=== PATIENT | male | born 1940 | race Caucasian/White ===

== ENCOUNTER 2017-06-30 11:24 | Observation (INO) | payer OTHER ==
[~2017-06-30] VITALS: Ht 170.2 cm; Wt 87.1 kg
[~2017-06-30 11:24] MED LIST: ASPEC81 PO; EYE GTTS OPB; MULT-506 PO; SIMV40TA2 PO
[2017-06-30] MEDS ORDERED: VNTHFA/IN INH (12:17)
[2017-06-30] MEDS ORDERED: CLOP1TAB15 PO (12:17)
[2017-06-30 12:29] LABS: HEMATOCRIT 44.1 % (42-52); MEAN CELL VOLUME 92.6 fL (80-100); MEAN CORPUSCULAR HEMOGLOBIN 32.8 pg (25-34); MEAN CORPUSCULAR HGB CONC 35.4 g/dl (32-36); PLATELET COUNT 284 K/uL (130-400); RED BLOOD COUNT 4.76 M/uL (4.7-6.1); WHITE BLOOD COUNT 6.67 K/uL (4.8-10.8)
[2017-06-30 12:30] LABS: BUN/CREATININE RATIO 12.7 (10-20); CALCIUM 8.9 mg/dl (8.5-10.1); CREATININE 0.79 mg/dl (0.60-1.40); PARTIAL THROMBOPLASTIN RATIO 1.1; POTASSIUM 4.4 mmol/L (3.5-5.1); PROTHROMBIN TIME (PATIENT) 10.7 SECONDS (9.0-12.0)
[2017-06-30 12:35] LABS: ALB/GLOB RATIO 1.2 (0.9-2); CKMB/CK RATIO 1.4 (0-3.0)
--- NOTE | 2017-06-30 12:44 | DIAGNOSTIC IMAGING REPORT ---
CHEST ONE VIEW PORTABLE CLINICAL HISTORY: 77 years-old Male presenting with chest pain sob. TECHNIQUE: Portable upright AP view of the chest was obtained. COMPARISON: 04/27/2009. FINDINGS: Persistent prominence and tortuosity of the aorta, which demonstrates atherosclerosis of the aortic arch. Cardiac silhouette not enlarged. Minimal linear basilar opacities. No other focal infiltrate. No pleural effusion or pneumothorax. Osseous structures normal. Upper abdomen normal. IMPRESSION: 1. Persistent prominence and tortuosity of aorta, unchanged. 2. Possible minimal basilar scarring or atelectasis, unchanged. No other evidence of acute cardiopulmonary disease. Electronically signed by: Florentin Stallworth M.D. 06/30/2017 12:43 PM Dictated Date/Time: 06/30/2017 12:41 PM
[2017-06-30] MEDS ORDERED: ASPIRIN 81 MG CHEW PO STA (13:06)
[2017-06-30] MEDS ORDERED: ACETAMINOPHEN 325 MG TAB PO PRN (13:45)
[2017-06-30] MEDS ORDERED: ONDANSETRON INJ 2 MG/ML 2 ML VIAL IV PRN (13:45)
[2017-06-30] MEDS ORDERED: NITROGLYCERIN 0.4 MG SL PER TAB CHARGE SL PRN (13:45)
[2017-06-30] MEDS ORDERED: MoRPHine SULFATE 2 MG/ML CARP IV PRN (13:45)
[2017-06-30] MEDS ORDERED: IV FLUIDS COMPLETED PRN (14:00)
[2017-06-30] MEDS ORDERED: SIMV20TA2 PO (14:19)
[2017-06-30] MEDS ORDERED: [UNRECOGNIZED DRUG - CODE] OPB (14:19)
[2017-06-30] MEDS ORDERED: albuterol HFA INH (14:19)
[2017-06-30] MEDS ORDERED: LEUP1INJ15 SQ (14:22)
--- NOTE | 2017-06-30 14:25 | History and Physical ---
History & Physical Date & Time of Service: Jun 30, 2017 at 14:24 . Chief Complaint: chest pain . Primary Care Physician: Lesley Landry M.D. . History of Present Illness Source: patient 77 YO male followed in the past by Dr. Landry, now residing in [place]. History of asthma, dyslipidemia, prostate Ca, and other problems noted below. Physically active. Usually walks for 1/2 hour 3 times a week. Experienced midsternal chest pressure and dyspnea a few days ago after walking around 100 yards. Symptoms resolved with rest. Attending the [facility] today. Again experienced midsternal pressure with ambulation. CP radiated to his left shoulder. [place] somewhat SOB. No nausea, vomiting, diaphoresis. He rested. Symptoms resolved after about 10 minutes. . Past Medical/Surgical History Chronic and Resolved Medical Problems: (1) Asthma Status: Chronic (2) Carcinoma of prostate Status: Chronic (3) Diverticular disease of colon Status: Chronic (4) History of bladder cancer Status: Chronic (5) History of colonic polyps Status: Chronic (6) Hypercholesteremia Status: Chronic (7) Macular degeneration Status: Chronic Surgical Problems: (1) Status post cataract extraction Status: Chronic (2) Status post prostatectomy Status: Chronic Family History FATHER Prostate cancer MOTHER Stroke SISTER Breast cancer Social History Smoking Status: Former Smoker Alcohol Use: occasionally Marital Status: Occupational Status: retired Immunizations History of Influenza Vaccine: Yes History of Tetanus Vaccine?: Yes History of Pneumococcal: Yes History of Hepatitis B Vaccine: No Multi-Drug Resistant Organisms History of MDRO: No Allergies Coded Allergies: No Known Allergies (Verified Allergy, Mild, 04/28/09) Home Medications Scheduled Artificial Tear Solution (Genteal Tears 0.1-0.3 %), 0 OPB UD Clopidogrel (Plavix), 75 MG PO DAILY Leuprolide Acetate (3 Month) (Eligard), 0 SQ every 3 months Multivitamin (Multivitamin), 1 TAB PO DAILY Simvastatin (Zocor), 20 MG PO HS Scheduled PRN [albuterol HFA], 2 PUFFS INH Q6 PRN for Wheezing Review of Systems Constitutional: + weight loss (intentional wt loss a few years ago, gained some back), No fever Eyes: + worsening of vision (macular degeneration) ENT: No hearing loss, No nasal symptoms, No sore throat Respiratory: No cough, No wheezing, No shortness of breath Cardiovascular: + problem reported (as noted above in HPI) Abdomen: No pain, No nausea, No vomiting, No diarrhea, No GI bleeding Musculoskeletal: + joint pain Genitourinary - Male: + problem reported (nocturia once a night), No hematuria , No dysuria Neurologic: No weakness Endocrine: No fatigue, No excessive thirst, No excessive urination Hematologic / Lymphatic: + abnormal bleeding/bruising (bruises easily) Integumentary: + rash (scalp dermatitis), No new/changing skin lesions Physical Exam Vital Signs Date Time Temp Pulse Resp B/P (MAP) Pulse Ox O2 Delivery O2 Flow Rate FiO2 06/30/17 13:32 81 134/80 93 Room Air 06/30/17 12:10 87 06/30/17 12:05 93 Room Air 06/30/17 12:05 93 Room Air 06/30/17 11:50 93 Room Air 06/30/17 11:46 93 Room Air 06/30/17 11:27 36.6 90 18 155/94 95 Room Air General Appearance: WD/WN, no apparent distress Head: normocephalic, atraumatic Eyes: normal inspection, PERRL, EOMI, sclerae normal ENT: normal ENT inspection, hearing grossly normal, pharynx normal Neck: supple, no adenopathy, thyroid normal, no JVD, trachea midline Respiratory/Chest: lungs clear, no respiratory distress, no accessory muscle use Cardiovascular: regular rate, rhythm, no edema, no gallop, no JVD, no murmur, normal peripheral pulses Abdomen/GI: normal bowel sounds, non tender, soft, no organomegaly, no pulsatile mass Extremities/Musculoskelatal: normal inspection, no calf tenderness, no pedal edema Neurologic/Psych: blackener II-XII nml as tested (PERRL, EOMI, no facial palsy, no dysarthria), no motor/sensory deficits (extremities 5/5), alert, normal mood/ affect, oriented x 3 Skin: normal color, warm/dry, no rash Lymphatic: no adenopathy Diagnostics Laboratory Results Results Past 24 Hours Test 06/30/17 11:40 06/30/17 12:11 Range/Units White Blood Count 6.67 4.8-10.8 K/uL Red Blood Count 4.76 4.7-6.1 M/uL Hemoglobin 15.6 14.0-18.0 g/dL Hematocrit 44.1 42-52 % Mean Corpuscular Volume 92.6 80-100 fL Mean Corpuscular Hemoglobin 32.8 25-34 pg Mean Corpuscular Hemoglobin Concent 35.4 32-36 g/dl RDW Standard Deviation 46.1 36.4-46.3 fL RDW Coefficient of Variation 13.6 11.5-14.5 % Platelet Count 284 130-400 K/uL Mean Platelet Volume 10.0 7.4-10.4 fL Prothrombin Time 10.7 9.0-12.0 SECONDS Prothromb Time International Ratio 1.0 0.9-1.1 Activated Partial Thromboplast Time 27.9 21.0-31.0 SECONDS Partial Thromboplastin Ratio 1.1 Sodium Level 139 136-145 mmol/L Potassium Level 4.4 3.5-5.1 mmol/L Chloride Level 102 98-107 mmol/L Carbon Dioxide Level 29 21-32 mmol/L Anion Gap 8.0 3-11 mmol/L Blood Urea Nitrogen 10 7-18 mg/dl Creatinine 0.79 0.60-1.40 mg/dl Est Creatinine Clear Calc Drug Dose 81.2 ml/min Estimated GFR () 99.0 Estimated GFR (Non- 85.4 BUN/Creatinine Ratio 12.7 10-20 Random Glucose 94 70-99 mg/dl Calcium Level 8.9 8.5-10.1 mg/dl Total Bilirubin 1.1 0.2-1 mg/dl Aspartate Amino Transf (AST/SGOT) 14 15-37 U/L Alanine Aminotransferase (ALT/SGPT) 27 12-78 U/L Alkaline Phosphatase 57 45-117 U/L Total Creatine Kinase 153 39-308 U/L Creatine Kinase MB 2.2 0.5-3.6 ng/ml Creatine Kinase MB Ratio 1.4 0-3.0 Total Protein 7.1 6.4-8.2 gm/dl Albumin 3.8 3.4-5.0 gm/dl Globulin 3.3 2.5-4.0 gm/dl Albumin/Globulin Ratio 1.2 0.9-2 Bedside Troponin I < 0.030 0-0.045 ng/ml Diagnostic Radiology PORT CHEST X-RAY IMPRESSION: 1. Persistent prominence and tortuosity of aorta, unchanged. 2. Possible minimal basilar scarring or atelectasis, unchanged. No other evidence of acute cardiopulmonary disease. Electronically signed by: Florentin Stallworth M.D. 06/30/2017 12:43 PM . EKG EKG performed at 11:34 reviewed and demonstrated NSR at 90 / minute, no acute changes. . Impression Assessment and Plan EXERTIONAL CHEST PRESSURE Symptoms consistent with new onset angina. EKG and cardiac markers in ED unremarkable. Check serial cardiac markers and EKG's. Check lipid profile. Continue clopidogrel and simvastatin. Consult Cardiology. ASTHMA Stable. Continue albuterol PRN. DYSLIPIDEMIA Check lipid profile. Continue simvastatin. PROSTATE CA S/P prostatectomy with subsequent rise of PSA. Received leuprolide injections. VTE PROPHYLAXIS SQ enoxaparin. Ambulate. DISPOSITION Observation status on Telemetry Unit. Expected discharge to home. Family Medicine follow-up with PCP in [place]. . VTE Prophylaxis VTE Risk Assessment Done? Y/N: Yes Risk Level: Moderate Given or contraindicated: Enoxaparin (Lovenox)SQ
[2017-06-30 14:30] VITALS: BP 134/80; TEMP 36.6; O2SAT 93; Ht 170.2 cm; Wt 87.1 kg
[2017-06-30] MEDS ORDERED: ARTIFICIAL TEARS OP SOLN OPB PRN ×2 (14:30)
[2017-06-30] MEDS ORDERED: ALBUTEROL HFA 8 GM INHALER INH PRN (14:30)
[2017-06-30 15:27] VITALS: BP 149/81; PULSE 75; TEMP 36.7; O2SAT 93
[2017-06-30 16:00] VITALS: O2SAT 93
--- NOTE | 2017-06-30 17:56 | CARDIOLOGY CONSULTATION ---
DATE OF CONSULTATION: 06/30/2017 REASON FOR CONSULTATION: Chest pain. HISTORY OF PRESENT ILLNESS: Mr. Andujar is a 77-year-old gentleman who spends his chaves in [place]; however, lives permanently in [place]. He developed an episode of chest discomfort last after ambulating to his mailbox. Near the edge of the road, he noted a left-sided and left shoulder discomfort, which lasted approximately 15 minutes. He stood and rested and the pain resolved spontaneously. He returned to his RV without recurrence of pain for nearly 1 week. Today, he went to the [employer]. He walked around without any symptoms for the majority of the day; however, in the late morning, he used the lavatory. After using the facility, he developed left-sided chest discomfort again. He sat on a bench and his discomfort slowly improved. Due recurrence of his symptoms, he decided to come to the Emergency Department for further evaluation. He has been pain free since arrival. His initial cardiac enzymes are negative. In general, the patient is active and walks approximately 3 days per week for exercise. He has not reproduced his symptoms with his regular exercise program. During his most recent episode of chest pain, he noted the paraesthesia involving the tip of his left upper extremity fifth digit. There was no associated shortness of breath, lightheadedness, dizziness, syncope, near syncope, or palpitations. Denies orthopnea or PND. No claudication or edema. He denies a personal history of coronary artery disease, diabetes, hypertension, or rheumatic fever as a child. He was diagnosed with transient ischemic attack approximately 10 years ago and was prescribed Plavix. He denies any intolerance to aspirin. Currently, asymptomatic. is present at bedside. She offers no other concerns/complaints at this time. REVIEW OF SYSTEMS: The pertinent positives noted above, a comprehensive 10-system review is otherwise negative. PAST MEDICAL HISTORY: 1. TIA. 2. Dyslipidemia. 3. Vertigo. 4. External hemorrhoids. 5. Prostate cancer. 6. Osteoarthritis. 7. Tinnitus. 8. Sleep apnea on CPAP. PAST SURGICAL HISTORY: 1. Cataract surgery. 2. Colonoscopy, status post colon polyp resection. 3. [place] teeth extraction. 4. Inguinal hernia repair. 5. Sigmoidoscopy. 6. Radical prostatectomy in 1996. FAMILY HISTORY: Father at age 68 from prostate cancer. Sister at 55 of breast cancer. Mother at age 73 after cerebrovascular accident. No family history of premature coronary artery disease or sudden cardiac . SOCIAL HISTORY: He is and lives with his . He is retired and resides in [place]. Reports approximately [id number] history of cigarette smoking, quit at age 33. He drinks alcohol sparingly. ALLERGIES: No known drug allergies. OUTPATIENT MEDICATIONS: 1. Plavix 75 mg daily. 2. Zocor 20 mg daily. 3. Albuterol inhaler as needed. ECG ON ADMISSION: Normal sinus rhythm, normal ECG. CHEST X-RAY: No acute cardiopulmonary disease. LABORATORY DATA: White blood cell count 6.67, hemoglobin is 15.6, and platelet count is 284. Sodium 139, potassium 4.4, chloride 102, CO2 is 29, BUN is 10, and creatinine is 0.79. Initial cardiac enzymes negative. INR is 1.0. PHYSICAL EXAMINATION: VITAL SIGNS: Temperature is 36.6 degrees centigrade, pulse is 81 beats per minute and regular, respiratory rate is 18 breaths per minute, blood pressure 134/80 and SaO2 is 93% on room air. GENERAL: NAD, awake, alert and oriented x3. HEENT: His mucous membranes are moist. There is no scleral icterus. Conjunctivae are pink. NECK: Supple. There is no JVD, no HJR, and no carotid bruit. HEART: Regular with a normal S1 and S2. There is no murmur, rub, or gallop. LUNGS: Clear without rales, rhonchi or wheeze. ABDOMEN: Soft and nontender. No rebound or guarding. Normal bowel sounds. EXTREMITIES: Warm and dry. There is no clubbing, cyanosis, or edema. Dorsalis pedis pulses are 2/4 bilaterally. His radial pulses are 2/4 bilaterally. NEUROLOGIC: Demonstrates no focal motor deficit. FINAL IMPRESSION: 1. Atypical chest discomfort. 2. Dyslipidemia. 3. Remote history of transient ischemic attack, on chronic clopidogrel therapy. PLAN AND RECOMMENDATIONS: Cardiac enzymes will be cycled x3 sets. health type technician will be maintained during hospitalization. Resting 2D transthoracic echo will be performed today. If cardiac enzymes and resting echo are within normal limits, the patient will be scheduled for exercise stress echocardiography in the a.m. If cardiac enzymes returned positive, would recommend intravenous heparin overnight. Plavix will be continued at this time as previously ordered. Further recommendations pending review of testing and clinical course. Thank you for allowing me to take part in the care of your patient. SHON
[2017-06-30 20:00] VITALS: BP 148/90; PULSE 67; TEMP 36.6; O2SAT 93
--- NOTE | 2017-06-30 20:33 | EMERGENCY ROOM VISIT NOTE ---
History Report prepared by Lucio: Cliff Viera Under the Supervision of: Dr. Tyrone Oliveros M.D. First contact with patient: 12:56 Chief Complaint: CHEST PAIN Stated Complaint: CHEST PAIN, L ARM PAIN Nursing Triage Summary: triage note: Pt reports intermittent mid chest pain since . History of Present Illness The patient is a 77 year old male who presents to the Emergency Room with complaints of intermittent chest pain beginning four days ago. He localizes his pain to his lower chest, but states that it radiates into his left chest. The patient states that his symptoms began initially while he was walking 500 yards to get his mail. He states that the initial episode resolved after about an hour , but then he developed some pain in his left arm and tingling in his left hand. He notes that he has a history of similar pain in his extremities associated with changing seasons. The patient rates his chest pain as a 5/10 in severity when present. He had another episode occur today while walking at the [employer] 3 hours ago. He states that he currently feels a bit of tightness in his chest with deep breathing, but is not sure if this is related to chest congestion. He is on Plavix for a previous TIA. Pt denies LOC, headache, fevers , chills, visual changes, neck pain, tearing pain radiating to the back, personal history or family history of aneurysm, uncontrolled hypertension, breathing difficulties, leg swelling, prolonged travel, recent surgery or immobilization, nausea, vomiting, abdominal pain, melena, hematochezia, urinary symptoms, numbness, weakness, lymphadenopathy, rash, or other complaints. He states that he currently receives occasional abdominal injections for prostate cancer. Source of History: patient Onset: Four days ago Position: chest (lower, radiating into the left side) Symptom Intensity: 5/10 Timing: intermittent Modifying Factors (Worsening): other (walking) Note: Additional symptoms: left arm pain and left hand tingling. Review of Systems See HPI for pertinent positives and negatives. A total of ten systems were reviewed and were otherwise negative. Past Medical & Surgical Medical Problems: (1) Chest pain (2) Hypercholesteremia (3) Hypertension (4) Prostate CA Family History No pertinent family history stated. Social History Smoking Status: Former Smoker Current/Historical Medications Scheduled Artificial Tear Solution (Genteal Tears 0.1-0.3 %), 0 OPB UD Clopidogrel (Plavix), 75 MG PO DAILY Leuprolide Acetate (3 Month) (Eligard), 0 SQ every 3 months Multivitamin (Multivitamin), 1 TAB PO DAILY Simvastatin (Zocor), 20 MG PO HS Scheduled PRN [albuterol HFA], 2 PUFFS INH Q6 PRN for Wheezing Allergies Coded Allergies: No Known Allergies (Verified Allergy, Mild, 04/28/09) Physical Exam Vital Signs Date Time Temp Pulse Resp B/P (MAP) Pulse Ox O2 Delivery O2 Flow Rate FiO2 06/30/17 13:32 81 134/80 93 Room Air 06/30/17 12:10 87 06/30/17 12:05 93 Room Air 06/30/17 12:05 93 Room Air 06/30/17 11:50 93 Room Air 06/30/17 11:46 93 Room Air 06/30/17 11:27 36.6 90 18 155/94 95 Room Air Physical Exam GENERAL: Awake, alert, well-appearing, in no distress HENT: Normocephalic, atraumatic. Oropharynx unremarkable. EYES: Normal conjunctiva. Sclera non-icteric. NECK: Supple. No nuchal rigidity. FROM. No JVD. RESPIRATORY: Clear to auscultation. CARDIAC: Regular rate, normal rhythm. Extremities warm and well perfused. Pulses equal. ABDOMEN: Soft, non-distended. No tenderness to palpation. No rebound or guarding. No masses. RECTAL: Deferred. MUSCULOSKELETAL: Chest examination reveals no tenderness. The back is symmetrical on inspection without obvious abnormality. There is no CVA tenderness to palpation. No joint edema. LOWER EXTREMITIES: Calves are equal size bilaterally and non-tender. No edema. No discoloration. NEURO: Normal sensorium. No sensory or motor deficits noted. SKIN: No rash or jaundice noted. Medical Decision & Procedures ER Provider Diagnostic Interpretation: X-ray: Per my interpretation, radiologist review. CHEST ONE VIEW PORTABLE FINDINGS: Persistent prominence and tortuosity of the aorta, which demonstrates atherosclerosis of the aortic arch. Cardiac silhouette not enlarged. Minimal linear basilar opacities. No other focal infiltrate. No pleural effusion or pneumothorax. Osseous structures normal. Upper abdomen normal. IMPRESSION: 1. Persistent prominence and tortuosity of aorta, unchanged. 2. Possible minimal basilar scarring or atelectasis, unchanged. No other evidence of acute cardiopulmonary disease. Electronically signed by: Florentin Stallworth M.D. 06/30/2017 12:43 PM Laboratory Results 06/30/17 11:40 06/30/17 11:40 Test 06/30/17 11:40 06/30/17 12:11 Red Blood Count 4.76 M/uL (4.7-6.1) Mean Corpuscular Volume 92.6 fL (80-100) Mean Corpuscular Hemoglobin 32.8 pg (25-34) Mean Corpuscular Hemoglobin Concent 35.4 g/dl (32-36) RDW Standard Deviation 46.1 fL (36.4-46.3) RDW Coefficient of Variation 13.6 % (11.5-14.5) Mean Platelet Volume 10.0 fL (7.4-10.4) Prothrombin Time 10.7 SECONDS (9.0-12.0) Prothromb Time International Ratio 1.0 (0.9-1.1) Activated Partial Thromboplast Time 27.9 SECONDS (21.0-31.0) Partial Thromboplastin Ratio 1.1 Anion Gap 8.0 mmol/L (3-11) Est Creatinine Clear Calc Drug Dose 81.2 ml/min Estimated GFR () 99.0 Estimated GFR (Non- 85.4 BUN/Creatinine Ratio 12.7 (10-20) Calcium Level 8.9 mg/dl (8.5-10.1) Total Bilirubin 1.1 mg/dl (0.2-1) Aspartate Amino Transf (AST/SGOT) 14 U/L (15-37) Alanine Aminotransferase (ALT/SGPT) 27 U/L (12-78) Alkaline Phosphatase 57 U/L (45-117) Total Creatine Kinase 153 U/L (39-308) Creatine Kinase MB 2.2 ng/ml (0.5-3.6) Creatine Kinase MB Ratio 1.4 (0-3.0) Total Protein 7.1 gm/dl (6.4-8.2) Albumin 3.8 gm/dl (3.4-5.0) Globulin 3.3 gm/dl (2.5-4.0) Albumin/Globulin Ratio 1.2 (0.9-2) Bedside Troponin I < 0.030 ng/ml (0-0.045) Laboratory results reviewed by me Medications Administered Medications (Trade) Dose Ordered Sig/Chel Route Start Time Stop Time Status Last Admin Dose Admin Aspirin (Aspirin Chew) 324 mg NOW STAT PO 06/30/17 13:06 06/30/17 13:07 DC 06/30/17 13:31 324 MG ECG Indication: chest pain Rate (beats per minute): 87 Rhythm: normal sinus Findings: no acute ischemic change, no ectopy ED Course 1303: The patient was evaluated in room B12B. A complete history and physical exam was performed. 1306: Ordered Aspirin Chew 324 mg PO. 1328: Upon reexamination, the patient was resting comfortably. I discussed the test results and treatment plan with him. The patient will be evaluated for further management. Medical Decision Triage Nursing notes reviewed. The patient's presentation and history were concerning for chest pain. Etiologies such as cardiac ischemia, aortic dissection, pulmonary embolism, pneumonia, pneumothorax, musculoskeletal, infections, gastrointestinal, as well as others were entertained. The patient was evaluated. He has had exertional chest pain. He was given aspirin. ECG and blood work were unremarkable. Chest x-ray was unremarkable. Given his age and symptoms further evaluation and management was felt to be appropriate. The patient was in agreement. Consultation is made with internal medicine. The patient was evaluated in the Emergency Room for further management. Medication Reconcilliation Current Medication List: was personally reviewed by me Blood Pressure Screening Patient's blood pressure: Elevated blood pressure Blood pressure disposition: Referred to PCP Consults Time Called: 1313 Consulting Physician: Dr. Mohinder Delgado Returned Call: [phone] Discussed the patient's case. The patient will be evaluated for further treatment and disposition. Impression Primary Impression: Exertional chest pain Scribe Attestation The scribe's documentation has been prepared under my direction and personally reviewed by me in its entirety. I confirm that the note above accurately reflects all work, treatment, procedures, and medical decision making performed by me. Departure Information Dispostion Being Evaluated By Hospitalist Lesley Grayson M.D. (PCP) Patient Instructions [facility]
[2017-06-30] MEDS ORDERED: SIMVASTATIN 20 MG TAB PO SCH (21:00)
[2017-06-30] MEDS ORDERED: ENOXAPARIN 40 MG/0.4 ML SYR SC SCH (21:00)
[2017-07-01] VITALS: BP 138/78; PULSE 65; TEMP 36.9; O2SAT 94
[2017-07-01 04:29] VITALS: BP 124/70; PULSE 68; TEMP 36.3; O2SAT 95
[2017-07-01 06:55] LABS: CHOLESTEROL 149 mg/dl (0-200); HDL CHOLESTEROL 74 mg/dl; LDL CHOLESTEROL CALCULATED 54 mg/dl; TRIGLYCERIDES 105 mg/dl (0-150); VERY LOW DENSITY LIPOPROT CALC 21 mg/dl
[2017-07-01 07:23] VITALS: BP 130/75; PULSE 78; TEMP 36.6; O2SAT 93
[2017-07-01 08:00] VITALS: O2SAT 93
[2017-07-01] MEDS ORDERED: FLUTICASONE/SALMETEROL 250/50 (ADVAIR) 14 PUFF/1 INHALER INH SCH (09:00)
[2017-07-01] MEDS ORDERED: CLOPIDOGREL BISULFATE 75 MG TAB PO SCH (09:00)
[2017-07-01] MEDS ORDERED: ASPIRIN 81 MG ECTAB PO SCH (09:00)
[2017-07-01] MEDS ORDERED: PERFLUTREN LIPID MICROSPHERE (DEFINITY) IV ONE (09:40)
--- NOTE | 2017-07-01 11:01 | EXERCISE STRESS ECHO ---
*NOTICE TO RECEIVING [employer] This information is strictly Confidential and protected under [place] law. [place] law prohibits you from making any further disclosure of this information unless further disclosure is expressly permitted by the written consent of the person to whom it pertains or is authorized by law. A general authorization for the release of medical or other information is not sufficient for this purpose. Hospital accepts no responsibility if the information is made available to any other person, INCLUDING THE PATIENT. Interpretation Summary * Name: TSERING ALVES Study Date: 07/01/2017 08:19 AM BP: 145/80 mmHg * Patient Location: [facility]\S\N280\S\2 HR: 69 * : 1940 (M/d/yyyy) Gender: Male Height: 67 in * Age: 77 yrs Ethnicity: CA Weight: 192 lb * Ordering Physician: Alonzo Daniel * Referring Physician: Self, Referred * Performed By: Marine Back RDCS * * Reason For Study: CHEST PAIN * BSA: 2.0 m2 * STRESS STUDY: Normal exercise stress echocardiogram. No echocardiographic or ECG evidence of myocardial ischemia having achieved heart rate adequate for diagnostic purposes. * -- Conclusions -- * Ejection Fraction = 55-60%. * There is mild concentric left ventricular hypertrophy. * Grade I diastolic dysfunction, (abnormal relaxation pattern). * Mild aortic regurgitation. Procedure Details * ECHOEX, CPT #72131 * A contrast injection of Definity was performed to improve assessment of LV function. * Contrast was injected into an intravenous site in the right arm. * One vial of Definity ultrasound contrast was diluted in normal saline to a total volume of 10 ml. A total of '4' ml of solution was administered during imaging. * Lot # [id number] of Definity utilized for procedure. * Expiration date JUN 27. * The attending nurse who injected the contrast agent was STEPHIE BANERJEE RN. * ECHO DOPPLER, CPT #28254 * ECHO COLOR FLOW, CPT #87243 Left Ventricle * The left ventricle is normal in size. * There is mild concentric left ventricular hypertrophy. * Ejection Fraction = 55-60%. * Left ventricular systolic function is normal. * Resting wall motion: Normal. Stress wall motion: Appropriate increase in Left ventricular systolic function and decrease in cavity size. No stress induced segmental wall motion abnormalities. Right Ventricle * The right ventricle is normal in size and function. Atria * The left atrial size is normal. * Right atrial size is normal. * No ASD detected; PFO is not assessed. Mitral Valve * There is moderate mitral annular calcification. * There is no mitral valve stenosis. * There is trace mitral regurgitation. Tricuspid Valve * The tricuspid valve is normal. * There is no tricuspid stenosis. * There is trace tricuspid regurgitation. * Doppler findings do not suggest pulmonary hypertension. Aortic Valve * The aortic valve is trileaflet. * No hemodynamically significant valvular aortic stenosis. * Mild aortic regurgitation. Pulmonic Valve * The pulmonic valve is not well visualized. Great Vessels * The aortic root is normal size. Pericardium * There is no pericardial effusion. Stress Parameters * The baseline ECG displays normal sinus rhythm. * Stress ECG: No ST changes. No arrhythmias. * The stress portion of this study was personally supervised by the undersigned interpreting physician. * Rest heart rate was '69' BPM. * Rest blood pressure was '145/80' * Maximum heart rate achieved was 130 bpm. * Maximum heart rate was 92 % of maximum age-predicted heart rate. * Maximum blood pressure was '215/98' * Total exercise time was '4:32' * Maximum exercise MET level achieved was '6.40' METS * Maximum treadmill speed was '2.5' miles per hour. * Maximum treadmill elevation was '12'% grade. * Exercise was terminated due to 'ACHIEVING TARGET HR' * The patient exhibited a hypertensive response with stress. Left Ventricular Diastolic Function * Grade I diastolic dysfunction, (abnormal relaxation pattern). MMode 2D Measurements and Calculations IVSd 1.2 cm IVSs 1.8 cm LVIDd 3.6 cm LVIDs 2.6 cm LVPWd 1.3 cm LVPWs 1.6 cm IVS/LVPW 0.93 FS 29.1 % EDV(Teich) 55.8 ml ESV(Teich) 24.2 ml EF(Teich) 56.7 % EDV(cubed) 48.2 ml ESV(cubed) 17.2 ml EF(cubed) 64.3 % % IVS thick 56.2 % % LVPW thick 27.7 % LV mass(C)d 147.6 grams LV mass(C)dI 74.3 grams/m\S\2 LV mass(C)s 169.2 grams LV mass(C)sI 85.1 grams/m\S\2 SV(Teich) 31.7 ml SI(Teich) 15.9 ml/m\S\2 SV(cubed) 31.0 ml SI(cubed) 15.6 ml/m\S\2 Ao root diam 3.8 cm Ao root area 11.6 cm\S\2 LA dimension 3.4 cm LA/Ao 0.89 LVAd ap4 33.7 cm\S\2 LVLd ap4 8.7 cm EDV(MOD-sp4) 107.1 ml EDV(sp4-el) 110.1 ml LVAs ap4 19.9 cm\S\2 LVLs ap4 6.6 cm ESV(MOD-sp4) 49.2 ml ESV(sp4-el) 51.0 ml EF(MOD-sp4) 54.1 % EF(sp4-el) 53.7 % LVAd ap2 32.4 cm\S\2 LVLd ap2 8.5 cm EDV(MOD-sp2) 101.9 ml EDV(sp2-el) 104.8 ml LVAs ap2 18.7 cm\S\2 LVLs ap2 7.0 cm ESV(MOD-sp2) 43.5 ml ESV(sp2-el) 42.5 ml EF(MOD-sp2) 57.3 % EF(sp2-el) 59.4 % LVLd %diff -3.15 % EDV(MOD-bp) 106.7 ml LVLs %diff 6.0 % ESV(MOD-bp) 46.7 ml EF(MOD-bp) 56.3 % SV(MOD-sp4) 57.9 ml SI(MOD-sp4) 29.1 ml/m\S\2 SV(MOD-sp2) 58.4 ml SI(MOD-sp2) 29.4 ml/m\S\2 SV(MOD-bp) 60.1 ml SI(MOD-bp) 30.2 ml/m\S\2 SV(sp4-el) 59.1 ml SI(sp4-el) 29.8 ml/m\S\2 SV(sp2-el) 62.3 ml SI(sp2-el) 31.3 ml/m\S\2 Doppler Measurements and Calculations MV E max mo 65.5 cm/sec MV A max mo 97.5 cm/sec MV E/A 0.67 MV dec time 0.30 sec Ao V2 max 107.5 cm/sec Ao max PG 4.6 mmHg Ao max PG (full) -1.21 mmHg LV V1 max PG 5.8 mmHg LV V1 max 120.8 cm/sec TR max mo 180.5 cm/sec
--- NOTE | 2017-07-01 11:13 | Progress Note ---
Medicine Progress Note Date & Time of Visit: Jul 01, 2017 at 10:30 . Subjective No further chest pain or SOB. Treadmill stress echo went well- exercised at adequate workload without symptoms. . Objective Last 8 Hrs Date Time Temp Pulse Resp B/P (MAP) Pulse Ox O2 Delivery O2 Flow Rate FiO2 07/01/17 08:00 93 Room Air 07/01/17 07:23 36.6 78 16 130/75 (93) 93 Room Air 07/01/17 04:29 36.3 68 18 124/70 (88) 95 Nasal Cannula 2.0 07/01/17 04:00 Room Air Physical Exam: General- no distress Neck- no JVD Lungs- clear Heart- RRR Abdomen- + BS, soft, nontender Extremities- no pretibial edema or calf tenderness Neuro- alert . Laboratory Results: Last 24 Hours Test 06/30/17 11:40 06/30/17 12:11 06/30/17 17:01 06/30/17 23:14 White Blood Count 6.67 K/uL Red Blood Count 4.76 M/uL Hemoglobin 15.6 g/dL Hematocrit 44.1 % Mean Corpuscular Volume 92.6 fL Mean Corpuscular Hemoglobin 32.8 pg Mean Corpuscular Hemoglobin Concent 35.4 g/dl RDW Standard Deviation 46.1 fL RDW Coefficient of Variation 13.6 % Platelet Count 284 K/uL Mean Platelet Volume 10.0 fL Prothrombin Time 10.7 SECONDS Prothromb Time International Ratio 1.0 Activated Partial Thromboplast Time 27.9 SECONDS Partial Thromboplastin Ratio 1.1 Sodium Level 139 mmol/L Potassium Level 4.4 mmol/L Chloride Level 102 mmol/L Carbon Dioxide Level 29 mmol/L Anion Gap 8.0 mmol/L Blood Urea Nitrogen 10 mg/dl Creatinine 0.79 mg/dl Est Creatinine Clear Calc Drug Dose 81.2 ml/min Estimated GFR () 99.0 Estimated GFR (Non- 85.4 BUN/Creatinine Ratio 12.7 Random Glucose 94 mg/dl Calcium Level 8.9 mg/dl Total Bilirubin 1.1 mg/dl Aspartate Amino Transf (AST/SGOT) 14 U/L Alanine Aminotransferase (ALT/SGPT) 27 U/L Alkaline Phosphatase 57 U/L Total Creatine Kinase 153 U/L Creatine Kinase MB 2.2 ng/ml Creatine Kinase MB Ratio 1.4 Total Protein 7.1 gm/dl Albumin 3.8 gm/dl Globulin 3.3 gm/dl Albumin/Globulin Ratio 1.2 Bedside Troponin I < 0.030 ng/ml Troponin I < 0.015 ng/ml < 0.015 ng/ml Test 07/01/17 05:48 Troponin I < 0.015 ng/ml Triglycerides Level 105 mg/dl Cholesterol Level 149 mg/dl HDL Cholesterol 74 mg/dl LDL Cholesterol, Calculated 54 mg/dl VLDL Cholesterol, Calculated 21 mg/dl Cholesterol/HDL Ratio 2.0 Other Studies: EKG performed at 06:53 reviewed and demonstrated NSR at 70 / minute, no acute changes. . Assessment & Plan CHEST PAIN Acute TN ruled out. No stress-induced ischemia or symptoms during treadmill stress echo. Low clinical suspicion for pulmonary embolism or aortic dissection. No further symptoms. Consider further evaluation (e.g., GI evaluation) if symptoms recur. At risk for atherosclerosis. Continue clopidogrel and simvastatin. ASTHMA Stable. Continue Advair + albuterol PRN. DYSLIPIDEMIA LDL-c = 54. Continue simvastatin. PROSTATE CA S/P prostatectomy with subsequent rise of PSA. Continue leuprolide injections. VTE PROPHYLAXIS Receiving SQ enoxaparin. Ambulating. DISPOSITION Discharge to home. Family Medicine follow-up with PCP in [place]: Miya Breen MD, MPH [address], [address] [place] [address] . Consultants: Cardiology . Procedures: cardiac monitoring treadmill stress echo . Current Inpatient Medications: Current Inpatient Medications Medications (Trade) Dose Ordered Sig/Chel Route Start Time Stop Time Status Last Admin Dose Admin Enoxaparin Sodium (Lovenox Inj) 40 mg HS SC 06/30/17 21:00 07/30/17 20:59 06/30/17 20:47 40 MG Acetaminophen (Tylenol Tab) 650 mg Q4H PRN PO 06/30/17 13:45 07/30/17 13:44 Ondansetron HCl (Zofran Inj) 4 mg Q6H PRN IV 06/30/17 13:45 07/30/17 13:44 Nitroglycerin (Nitrostat Tab) 0.4 mg UD PRN SL 06/30/17 13:45 07/30/17 13:44 Morphine Sulfate (MoRPHine SULFATE INJ) 2 mg Q30M PRN IV 06/30/17 13:45 07/14/17 13:44 Miscellaneous (Iv Fluids Completed) 1 ea PRN PRN N/A 06/30/17 14:00 06/30/18 13:59 Clopidogrel Bisulfate (plAVix TAB) 75 mg DAILY PO 07/01/17 09:00 07/31/17 08:59 07/01/17 07:55 75 MG Simvastatin (Zocor Tab) 20 mg HS PO 06/30/17 21:00 07/30/17 20:59 06/30/17 20:46 20 MG Artificial Tears (Artificial Tears) 2 drops Q3H PRN OPB 06/30/17 14:30 07/30/17 14:29 Albuterol (Ventolin Hfa Inhaler) 2 puffs Q6H PRN INH 06/30/17 14:30 07/30/17 14:29 Salmeterol Xinafoate/ Fluticasone (Advair Diskus 250/50 Inh) 1 puff BID INH 07/01/17 09:00 07/31/17 08:59 07/01/17 07:58 1 PUFF
[2017-07-01] MEDS ORDERED: ADVIN25/60 INH (11:14)
--- NOTE | 2017-07-01 11:19 | Discharge Instructions ---
Discharge Instructions Date of Service Jul 01, 2017. Admission Reason for Admission: Chest Pain Discharge Discharge Diagnosis / Problem: chest pain- no sign of a heart attack Discharge Goals Goal(s): Improve disease control Activity Recommendations Activity Limitations: resume your previous activity . Instructions / Follow-Up Instructions / Follow-Up FOLLOW-UP APPOINTMENTS: FAMILY MEDICINE Dr. Breen OTHER INSTRUCTIONS: Seek medical attention if you have: * temperature above 101 * chest pain or trouble breathing * abdominal pain, nausea, vomiting * diarrhea, dark stools or bloody stools * any unanswered questions or concerns Call 911 if symptoms are severe. Call if you have any questions or problems. My cell # is [phone]. You can also reach a [facility] hospitalist on duty at [facility] 24 hours a day by calling [phone]. Please take good care of yourself. Tyrone Vines . Current Hospital Diet Patient's current hospital diet: AHA Diet (Heart Healthy) Discharge Diet Recommended Diet: AHA Diet (Heart Healthy) Procedures Procedures Performed: stress test (treadmill stress echocardiogram) Pending Studies Studies pending at discharge: no Laboratory Results Lipid Panel Test 07/01/17 05:48 Range/Units Triglycerides Level 105 0-150 mg/dl Cholesterol Level 149 0-200 mg/dl HDL Cholesterol 74 mg/dl Cholesterol/HDL Ratio 2.0 LDL Cholesterol, Calculated 54 mg/dl Medical Emergencies . Who to Call and When: Medical Emergencies: If at any time you feel your situation is an emergency, please call 911 immediately. . Non-Emergent Contact Non-Emergency issues call your: Primary Care Provider, Emergency Manager, Hospital Doctor . . "Provider Documentation" section prepared by Tyrone Vines. . VTE Core Measure Inpt VTE Proph given/why not?: Enoxaparin (Lovenox)SQ
--- NOTE | 2017-07-01 11:27 | Discharge Summary ---
Discharge Summary Date of Service Jul 01, 2017. Discharge Summary Admission Date: Jun 30, 2017 at 13:40 Discharge Date: Jul 01, 2017 Discharge Disposition: Home Principal Diagnosis: chest pain- no evidence of [place] or myocardial ischemia . 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 Procedures: cardiac monitoring treadmill stress echo . Consultations: Cardiology . Medication Reconciliation Continued Medications: Artificial Tear Solution (Genteal Tears 0.1-0.3 %) 1 [place] 0 OPB UD Clopidogrel (Plavix) 75 Mg Tab 75 MG PO DAILY, TAB Fluticasone Prop/Salmeterol (Advair Diskus 250/50 60 Dose) 1 Ea Aerp 1 PUFF INH BID, INHALER Leuprolide Acetate (3 Month) (Eligard) 22.5 Mg Inj 0 SQ every 3 months Multivitamin (Multivitamin) Tab 1 TAB PO DAILY Simvastatin (Zocor) 20 Mg Tab 20 MG PO HS, TAB [albuterol HFA] () 2 PUFFS INH Q6 PRN for Wheezing Admission Information HPI (per Admitting provider): 77 YO male followed in the past by Dr. Landry, now residing in [place]. History of asthma, dyslipidemia, prostate Ca, and other problems noted below. Physically active. Usually walks for 1/2 hour 3 times a week. Experienced midsternal chest pressure and dyspnea a few days ago after walking around 100 yards. Symptoms resolved with rest. Attending the [facility] today. Again experienced midsternal pressure with ambulation. CP radiated to his left shoulder. [place] somewhat SOB. No nausea, vomiting, diaphoresis. He rested. Symptoms resolved after about 10 minutes. . Physical Exam (per Admitting): General Appearance: WD/WN, no apparent distress Head: normocephalic, atraumatic Eyes: normal inspection, PERRL, EOMI, sclerae normal ENT: normal ENT inspection, hearing grossly normal, pharynx normal Neck: supple, no adenopathy, thyroid normal, no JVD, trachea midline Respiratory/Chest: lungs clear, no respiratory distress, no accessory muscle use Cardiovascular: regular rate, rhythm, no edema, no gallop, no JVD, no murmur , normal peripheral pulses Abdomen/GI: normal bowel sounds, non tender, soft, no organomegaly, no pulsatile mass Extremities/Musculoskelatal: normal inspection, no calf tenderness, no pedal edema 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 Cardiology consulted. Acute [place] ruled out. No stress-induced ischemia or symptoms during treadmill stress echo. Low clinical suspicion for pulmonary embolism or aortic dissection. No further symptoms. Consider further evaluation (e.g., GI evaluation) if symptoms recur. At risk for atherosclerosis. Continue clopidogrel and simvastatin. ASTHMA Stable. Continue Advair + albuterol PRN. DYSLIPIDEMIA LDL-c = 54. Continue simvastatin. PROSTATE CA S/P prostatectomy with subsequent rise of PSA. Continue leuprolide injections. VTE PROPHYLAXIS Receiving SQ enoxaparin. Ambulating. DISPOSITION Discharge to home. Family Medicine follow-up with PCP in [place]: Miya Breen MD, MPH [address], [address] [place] [address] . Discharge Instructions Date of Service Jul 01, 2017. Admission Reason for Admission: Chest Pain Discharge Discharge Diagnosis / Problem: chest pain- no sign of a heart attack Discharge Goals Goal(s): Improve disease control Activity Recommendations Activity Limitations: resume your previous activity . Instructions / Follow-Up Instructions / Follow-Up FOLLOW-UP APPOINTMENTS: FAMILY MEDICINE Dr. Breen OTHER INSTRUCTIONS: Seek medical attention if you have: * temperature above 101 * chest pain or trouble breathing * abdominal pain, nausea, vomiting * diarrhea, dark stools or bloody stools * any unanswered questions or concerns Call 911 if symptoms are severe. Call if you have any questions or problems. My cell # is [phone]. You can also reach a [facility] hospitalist on duty at [facility] 24 hours a day by calling [phone]. Please take good care of yourself. Tyrone Vines . Current Hospital Diet Patient's current hospital diet: AHA Diet (Heart Healthy) Discharge Diet Recommended Diet: AHA Diet (Heart Healthy) Procedures Procedures Performed: stress test (treadmill stress echocardiogram) Pending Studies Studies pending at discharge: no Laboratory Results Lipid Panel Test 07/01/17 05:48 Range/Units Triglycerides Level 105 0-150 mg/dl Cholesterol Level 149 0-200 mg/dl HDL Cholesterol 74 mg/dl Cholesterol/HDL Ratio 2.0 LDL Cholesterol, Calculated 54 mg/dl Medical Emergencies . Who to Call and When: Medical Emergencies: If at any time you feel your situation is an emergency, please call 911 immediately. . Non-Emergent Contact Non-Emergency issues call your: Primary Care Provider, Manager Welding, Hospital Doctor . . "Provider Documentation" section prepared by Tyrone Vines. . VTE Core Measure Inpt VTE Proph given/why not?: Enoxaparin (Lovenox)SQ . Additional Copies To Miya Breen MD, MPH
[2017-07-01 11:30] VITALS: BP 130/75; PULSE 78; TEMP 36.6; O2SAT 93
== END 2017-07-01 12:17 | disposition home or self-care (01) ==
LOC: C.EDB 11:25 → C.MED 13:40 → ENRESERV 14:15
PROVIDERS: ADMIT Hospitalist; ATTEND Hospitalist
DX: R07.9 Chest pain, unspecified (principal); J45.909 Unspecified asthma, uncomplicated; E78.5 Hyperlipidemia, unspecified; Z85.46 Personal history of malignant neoplasm of prostate; Z80.42 Family history of malignant neoplasm of prostate; Z82.3 Family history of stroke; Z87.891 Personal history of nicotine dependence; H35.30 Unspecified macular degeneration; Z86.73 Personal history of transient ischemic attack (TIA), and cerebral infarction without residual deficits; G47.30 Sleep apnea, unspecified; Z79.02 Long term (current) use of antithrombotics/antiplatelets; I35.1 Nonrheumatic aortic (valve) insufficiency

== ENCOUNTER 2021-06-22 00:31 | Observation (INO) ==
[2021-06-22] MEDS ORDERED: ONDANSETRON INJ 2 MG/ML 2 ML VIAL IV STA (01:15)
[2021-06-22 01:30] LABS: Appearance Urine Clear (Clear); Bacteria Urine Automated 4+ (Negative); Basophils # (auto) 0.02 K/uL (0-0.2); Basophils % (auto) 0.2 %; Bilirubin Urine Negative (Negative); Blood Urine 1+ (Negative); Color Urine Yellow; Eosinophils # (auto) 0.04 K/uL (0-0.5); Eosinophils % (auto) 0.4 %; Epithelial Cell Urine Auto >30 /lpf (0-5); Glucose Urine UA Negative (Negative); Hematocrit (blood only) 43.1 % (42-52); Hemoglobin 15.1 g/dL (14.0-18.0); Immature Granulocytes # (auto) 0.02 K/uL (0.00-0.02); Immature Granulocytes % (auto) 0.2 %; Ketones Urine Negative (Negative); Leukocyte Esterase Urine Negative (Negative); Lymphocytes # (auto) 1.07 K/uL (1.2-3.4); Lymphocytes % (auto) 10.7 %; Mean Corpuscular Hemoglobin 32.1 pg (25-34); Mean Corpuscular Volume 91.7 fL (80-100); Mean Platelet Volume 9.2 fL (7.4-10.4); Monocytes # (auto) 0.43 K/uL (0.11-0.59); Monocytes % (auto) 4.3 %; Neutrophils # (auto) 8.44 K/uL (1.4-6.5); Neutrophils % (auto) 84.2 %; Nitrite Urine Positive (Negative); Platelet Count 312 K/uL (130-400); RDW Coefficient of Variation 13.7 % (11.5-14.5); RDW Standard Deviation 45.8 fL (36.4-46.3); Specific Gravity Urine 1.011 (1.000-1.030); Urobilinogen Urine Negative (Negative); White Blood Count 10.02 K/uL (4.8-10.8); pH Urine 8.5 (4.5-7.5)
[2021-06-22 01:36] LABS: Protein Urine 2+ (Negative)
--- NOTE | 2021-06-22 01:37 | Emergency Department Note ---
Impression & Plan SBO (small bowel obstruction), Acute hyponatremia The patient was admitted to the [facility] service ED Provider Note NAME: TSERING ALVES AGE: 81 SEX: M ARRIVES VIA: Walk-In INFORMANT: Patient ED PROVIDER(S): Elena Kim DO CHIEF COMPLAINT: Diffuse abdominal pain PLAN: Disposition: Admitted to the [facility] service Condition: Stable MEDICAL DECISION MAKING: This is an 81-year-old male who presents to the emergency department complaining of diffuse abdominal pain and nausea. 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 Patient was told several months ago that he had hernias surrounding his urostomy. CT scan of the abdomen/pelvis shows evidence of a small bowel obstruction. I discussed this with Dr. Parks from surgery who felt we could try to treat this conservatively. The patient was also noted to be hyponatremic. He was started on a normal saline drip. [facility] and [facility] will evaluate for further management. Triage Nursing notes reviewed and agree with them. Additional history obtained from patient's is at the bedside Vital Signs: reviewed and remarkable for hypertension Differential diagnosis: Small bowel obstruction, obstructive uropathy UTI ER treatment provided: IV Zofran IV normal saline Diagnostics interpreted by me: Cardiac Monitoring: Normal sinus rhythm at 73 Laboratory studies: See below Imaging studies: As per stat rad CT scan of the abdomen/pelvis: Status post cystoprostatectomy. Status post right nephrectomy. Right lower quadrant ostomy. Right lower quadrant hernia located just medially to the ostomy containing loops of small and large bowel with dilatation of the small bowel loop within the hernia sac. The neck of the hernia is wide and there is no evidence of obstruction of bowel loops at the level of the hernia. There is diffuse dilatation of the upstream small bowel loops extending from the right lower quadrant ostomy compatible with small bowel obstruction. Dilated small bowel loops measure up to 3.5 cm in diameter. No evidence of bowel wall thickening, pneumatosis intestinalis. No pneumoperitoneum. Mild free pelvic fluid. HPI: 81/M arrives for evaluation of abdominal pain and nausea. 48 hours ago the patient developed diffuse abdominal pain which she thought was a muscle pain. However, throughout the day today the pain returned and was associated with nausea, dry heaving and now diaphoresis. Patient had this urostomy placed in 04/2020 secondary to cancer of the bladder and ureter. 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 Patient describes having a normal bowel movement today but this evening developed nausea, dry heaving and diaphoresis. Had some associated chills. ROS: See above HPI for pertinent positives & negatives. A total of 10 systems reviewed and were otherwise negative. PAST MEDICAL HISTORY:Bladder/ureter cancer; hypercholesterolemia; macular degeneration PAST SURGICAL HISTORY:The patient had a previous cystoprostatectomy FAMILY HISTORY:See Below SOCIAL HISTORY:The patient is from [place]; he is here visiting HOME MEDICATIONS:See list ALLERGIES:None VITALS:See Below PHYSICAL EXAMINATION: HEENT: Head - normocephalic and atraumatic. Pupils are equal, round, and reactive to light. Extraocular eye muscles are intact, and sclera are anicteric. Nose - moist nasal mucosa without discharge. Mouth - moist buccal mucosa. Oropharynx is nonerythematous and there is no tonsillar exudate or edema noted. Neck: Supple; no cervical lymphadenopathy Heart: Regular rate and rhythm. There is a normal S1 and S2 with no murmurs, clicks, or gallops appreciated. Lungs: Clear to auscultation bilaterally with no wheezes, rales, or rhonchi. Abdomen: Soft, mildly tender, nondistended, with good bowel sounds. There are no palpable pulsatile masses or hepatosplenomegaly. There is no guarding, rigidity, or rebound noted. Extremities: No evidence of cyanosis, clubbing, or edema. There are easily palpable peripheral pulses. Skin: Pale, warm and mildly diaphoretic with good turgor and no rashes. ED COURSE: Times/Reassessments: 0045: The patient was evaluated in room a 11. A complete history and physical was performed. An order was placed for continuous cardiac monitoring. Patient is in a normal sinus rhythm at a rate of 73. Patient was given 4 mg of IV Zofran for nausea. He will go for CT scan of the abdomen/pelvis. I reviewed this with the patient and his . Discussed the case with Dr. Parks who felt this could manage conservatively initially. The patient is no longer nauseated and not vomiting. I discussed the case with Dr. Hook and he will evaluate for further management. Elena A Botti, DO Past Med/Surg History Social History Smoking Status: Never smoker Preferred Language: Wolof Feels Safe at Home: Yes Allergies Allergies Allergy/AdvReac Type Severity Reaction Status Date / Time No Known Allergies Allergy Mild Verified 06/22/21 00:45 Home Meds Home Medications Medication Instructions Recorded Confirmed acyclovir 5 % topical ointment 1 applic TOPICAL UD 06/22/21 06/22/21 clobetasol 0.05 % scalp solution 1 applic TOPICAL UD 06/22/21 06/22/21 clopidogrel 75 mg tablet 75 mg PO DAILY 06/22/21 06/22/21 fluticasone 250 mcg-salmeterol 50 1 ea INHALATION DAILY 06/22/21 06/22/21 mcg/dose blistr powdr for inhalation (Advair Diskus) ketoconazole 2 % topical cream 1 applic TOPICAL UD 06/22/21 06/22/21 lisinopril 10 mg tablet 10 mg PO DAILY 06/22/21 06/22/21 multivitamin 1 tab PO DAILY 06/22/21 06/22/21 Results & Data (ED) Vital Signs Vital Signs - 24 hr 06/22/21 00:34 06/22/21 00:56 06/22/21 01:00 Temperature 36.2 C L Temperature Source Temporal Artery Scan Pulse Rate 77 77 Pulse Rate [Apical] 85 Pulse Rate from SpO2 Sensor 77 Pulse Rhythm Pulse Rhythm [Apical] Regular Pulse Strength [Apical] Normal Respiratory Rate 18 18 21 Respiratory Effort / Characteristics Non-Labored Spontaneous Non-Labored Spontaneous Respiratory Depth Normal Normal Respiratory Pattern Regular Regular Blood Pressure 157/92 H 166/83 H Blood Pressure [Left Arm] 166/89 H Blood Pressure Mean 113 110 Blood Pressure Mean [Left Arm] 114 Blood Pressure Position [Left Arm] Lying Pulse Oximetry 96 96 96 Oxygen Delivery Method Room Air Room Air Sepsis Recent Fever Within 48 Hours Yes Sepsis New/Unexplained Change in Mental Status No Sepsis Action Taken by Nursing No Action Required 06/22/21 01:16 06/22/21 01:30 06/22/21 02:00 Temperature Temperature Source Pulse Rate 73 71 73 Pulse Rate [Apical] Pulse Rate from SpO2 Sensor 71 Pulse Rhythm Regular Pulse Rhythm [Apical] Pulse Strength [Apical] Respiratory Rate 20 19 Respiratory Effort / Characteristics Respiratory Depth Respiratory Pattern Blood Pressure 142/89 H 133/89 Blood Pressure [Left Arm] Blood Pressure Mean 106 103 Blood Pressure Mean [Left Arm] Blood Pressure Position [Left Arm] Pulse Oximetry 96 95 Oxygen Delivery Method Room Air Sepsis Recent Fever Within 48 Hours Sepsis New/Unexplained Change in Mental Status Sepsis Action Taken by Nursing 06/22/21 03:00 06/22/21 03:30 06/22/21 04:00 Temperature Temperature Source Pulse Rate 74 73 76 Pulse Rate [Apical] Pulse Rate from SpO2 Sensor 74 73 76 Pulse Rhythm Pulse Rhythm [Apical] Pulse Strength [Apical] Respiratory Rate 18 16 18 Respiratory Effort / Characteristics Respiratory Depth Respiratory Pattern Blood Pressure 139/81 130/80 151/88 H Blood Pressure [Left Arm] Blood Pressure Mean 100 96 109 Blood Pressure Mean [Left Arm] Blood Pressure Position [Left Arm] Pulse Oximetry 94 93 95 Oxygen Delivery Method Sepsis Recent Fever Within 48 Hours Sepsis New/Unexplained Change in Mental Status Sepsis Action Taken by Nursing 06/22/21 04:30 06/22/21 05:00 Temperature Temperature Source Pulse Rate 77 74 Pulse Rate [Apical] Pulse Rate from SpO2 Sensor 77 74 Pulse Rhythm Pulse Rhythm [Apical] Pulse Strength [Apical] Respiratory Rate 18 16 Respiratory Effort / Characteristics Respiratory Depth Respiratory Pattern Blood Pressure 145/88 H 143/82 H Blood Pressure [Left Arm] Blood Pressure Mean 107 102 Blood Pressure Mean [Left Arm] Blood Pressure Position [Left Arm] Pulse Oximetry 94 92 Oxygen Delivery Method Sepsis Recent Fever Within 48 Hours Sepsis New/Unexplained Change in Mental Status Sepsis Action Taken by Nursing Laboratory Data Result diagrams: 06/22/21 01:16 06/22/21 04:09 Lab Results 06/22/21 06/22/21 06/22/21 Range/Units 01:16 01:16 01:16 WBC 10.02 (4.8-10.8) K/uL RBC 4.70 (4.7-6.1) M/uL Hgb 15.1 (14.0-18.0) g/dL Hct 43.1 (42-52) % MCV 91.7 (80-100) fL MCH 32.1 (25-34) pg MCHC 35.0 (32-36) g/dL RDW Std Deviation 45.8 (36.4-46.3) fL RDW Coeff of Rubén 13.7 (11.5-14.5) % Plt Count 312 (130-400) K/uL MPV 9.2 (7.4-10.4) fL Immature Gran % (Auto) 0.2 % Neut % (Auto) 84.2 % Lymph % (Auto) 10.7 % [place] % (Auto) 4.3 % Eos % (Auto) 0.4 % Baso % (Auto) 0.2 % Neut # (Auto) 8.44 H (1.4-6.5) K/uL Lymph # (Auto) 1.07 L (1.2-3.4) K/uL [place] # (Auto) 0.43 (0.11-0.59) K/uL Eos # (Auto) 0.04 (0-0.5) K/uL Baso # (Auto) 0.02 (0-0.2) K/uL Immature Gran # (Auto) 0.02 (0.00-0.02) K/uL APTT (21.0-31.0) Seconds PTT Ratio Sodium 127 L (136-145) mmol/L Potassium (3.5-5.1) mmol/L Chloride 96 L (98-107) mmol/L Carbon Dioxide 28 (21-32) mmol/L Anion Gap 3.0 (3-11) BUN 15 (7-18) mg/dl Creatinine 0.90 (0.6-1.4) mg/dl Est Cr Clr Drug Dosing 65.1 ml/min Est GFR ( Amer) 91.2 ml/min Est GFR (Non-Af Amer) 78.7 ml/min BUN/Creatinine Ratio 17.2 (10-20) Glucose 136 H (70-99) mg/dl Osmolality (280-300) mOsm/kg Calcium 9.2 (8.5-10.1) mg/dl Magnesium (1.8-2.4) mg/dl Total Bilirubin 1.1 H (0.2-1) mg/dl AST (15-37) U/L ALT 20 (12-78) U/L Alkaline Phosphatase 65 (45-117) U/L Total Protein 7.5 (6.4-8.2) gm/dl Albumin 3.9 (3.4-5.0) gm/dl Globulin 3.6 (2.5-4.0) gm/dl Albumin/Globulin Ratio 1.1 (0.9-2) Lipase 138 (73-393) U/L TSH (0.300-4.500) uIu/ml Urine Color Yellow Urine Appearance Clear (Clear) Urine pH 8.5 H (4.5-7.5) Ur Specific [place] 1.011 (1.000-1.030) Urine Protein 2+ H (Negative) Urine Glucose (UA) Negative (Negative) Urine Ketones Negative (Negative) Urine Blood 1+ H (Negative) Urine Nitrite Positive A (Negative) Urine Bilirubin Negative (Negative) Urine Urobilinogen Negative (Negative) Ur Leukocyte Esterase Negative (Negative) Urine WBC (Auto) 5-10 H (0-5) /hpf Urine RBC (Auto) 5-10 H (0-4) /hpf U Hyaline Cast (Auto) 0 (0-5) /lpf U Epithel Cells (Auto) >30 H (0-5) /lpf Urine Bacteria (Auto) 4+ H (Negative) Ur Renal Epithelial Cell Not Reportable Triple Phos Crystals Present A (None Prsent) Urine Osmolality (500-800) mOsm/kg Ur Random Sodium mmol/L COVID-19 Eval Order SARS-CoV-2 (PCR) (Negative) 06/22/21 06/22/21 06/22/21 Range/Units 01:16 01:16 03:45 WBC (4.8-10.8) K/uL RBC (4.7-6.1) M/uL Hgb (14.0-18.0) g/dL Hct (42-52) % MCV (80-100) fL MCH (25-34) pg MCHC (32-36) g/dL RDW Std Deviation (36.4-46.3) fL RDW Coeff of Rubén (11.5-14.5) % Plt Count (130-400) K/uL MPV (7.4-10.4) fL Immature Gran % (Auto) % Neut % (Auto) % Lymph % (Auto) % [place] % (Auto) % Eos % (Auto) % Baso % (Auto) % Neut # (Auto) (1.4-6.5) K/uL Lymph # (Auto) (1.2-3.4) K/uL [place] # (Auto) (0.11-0.59) K/uL Eos # (Auto) (0-0.5) K/uL Baso # (Auto) (0-0.2) K/uL Immature Gran # (Auto) (0.00-0.02) K/uL APTT (21.0-31.0) Seconds PTT Ratio Sodium (136-145) mmol/L Potassium (3.5-5.1) mmol/L Chloride (98-107) mmol/L Carbon Dioxide (21-32) mmol/L Anion Gap (3-11) BUN (7-18) mg/dl Creatinine (0.6-1.4) mg/dl Est Cr Clr Drug Dosing ml/min Est GFR ( Amer) ml/min Est GFR (Non-Af Amer) ml/min BUN/Creatinine Ratio (10-20) Glucose (70-99) mg/dl Osmolality (280-300) mOsm/kg Calcium (8.5-10.1) mg/dl Magnesium (1.8-2.4) mg/dl Total Bilirubin (0.2-1) mg/dl AST (15-37) U/L ALT (12-78) U/L Alkaline Phosphatase (45-117) U/L Total Protein (6.4-8.2) gm/dl Albumin (3.4-5.0) gm/dl Globulin (2.5-4.0) gm/dl Albumin/Globulin Ratio (0.9-2) Lipase (73-393) U/L TSH (0.300-4.500) uIu/ml Urine Color Urine Appearance (Clear) Urine pH (4.5-7.5) Ur Specific [place] (1.000-1.030) Urine Protein (Negative) Urine Glucose (UA) (Negative) Urine Ketones (Negative) Urine Blood (Negative) Urine Nitrite (Negative) Urine Bilirubin (Negative) Urine Urobilinogen (Negative) Ur Leukocyte Esterase (Negative) Urine WBC (Auto) (0-5) /hpf Urine RBC (Auto) (0-4) /hpf U Hyaline Cast (Auto) (0-5) /lpf U Epithel Cells (Auto) (0-5) /lpf Urine Bacteria (Auto) (Negative) Ur Renal Epithelial Cell Triple Phos Crystals (None Prsent) Urine Osmolality 348 L (500-800) mOsm/kg Ur Random Sodium 68 mmol/L COVID-19 Eval Order Covid19 at [facility] SARS-CoV-2 (PCR) (Negative) 06/22/21 06/22/2106/22/21 Range/Units 03:45 04:09 04:09 WBC (4.8-10.8) K/uL RBC (4.7-6.1) M/uL Hgb (14.0-18.0) g/dL Hct (42-52) % MCV (80-100) fL MCH (25-34) pg MCHC (32-36) g/dL RDW Std Deviation (36.4-46.3) fL RDW Coeff of Rubén (11.5-14.5) % Plt Count (130-400) K/uL MPV (7.4-10.4) fL Immature Gran % (Auto) % Neut % (Auto) % Lymph % (Auto) % [place] % (Auto) % Eos % (Auto) % Baso % (Auto) % Neut # (Auto) (1.4-6.5) K/uL Lymph # (Auto) (1.2-3.4) K/uL [place] # (Auto) (0.11-0.59) K/uL Eos # (Auto) (0-0.5) K/uL Baso # (Auto) (0-0.2) K/uL Immature Gran # (Auto) (0.00-0.02) K/uL APTT (21.0-31.0) Seconds PTT Ratio Sodium 131 L (136-145) mmol/L Potassium 4.5 (3.5-5.1) mmol/L Chloride (98-107) mmol/L Carbon Dioxide (21-32) mmol/L Anion Gap (3-11) BUN (7-18) mg/dl Creatinine (0.6-1.4) mg/dl Est Cr Clr Drug Dosing ml/min Est GFR ( Amer) ml/min Est GFR (Non-Af Amer) ml/min BUN/Creatinine Ratio (10-20) Glucose (70-99) mg/dl Osmolality 272 L (280-300) mOsm/kg Calcium (8.5-10.1) mg/dl Magnesium 2.2 (1.8-2.4) mg/dl Total Bilirubin (0.2-1) mg/dl AST (15-37) U/L ALT (12-78) U/L Alkaline Phosphatase (45-117) U/L Total Protein (6.4-8.2) gm/dl Albumin (3.4-5.0) gm/dl Globulin (2.5-4.0) gm/dl Albumin/Globulin Ratio (0.9-2) Lipase (73-393) U/L TSH 1.240 (0.300-4.500) uIu/ml Urine Color Urine Appearance (Clear) Urine pH (4.5-7.5) Ur Specific [place] (1.000-1.030) Urine Protein (Negative) Urine Glucose (UA) (Negative) Urine Ketones (Negative) Urine Blood (Negative) Urine Nitrite (Negative) Urine Bilirubin (Negative) Urine Urobilinogen (Negative) Ur Leukocyte Esterase (Negative) Urine WBC (Auto) (0-5) /hpf Urine RBC (Auto) (0-4) /hpf U Hyaline Cast (Auto) (0-5) /lpf U Epithel Cells (Auto) (0-5) /lpf Urine Bacteria (Auto) (Negative) Ur Renal Epithelial Cell Triple Phos Crystals (None Prsent) Urine Osmolality (500-800) mOsm/kg Ur Random Sodium mmol/L COVID-19 Eval Order SARS-CoV-2 (PCR) NEGATIVE (Negative) 06/22/21 Range/Units 04:09 WBC (4.8-10.8) K/uL RBC (4.7-6.1) M/uL Hgb (14.0-18.0) g/dL Hct (42-52) % MCV (80-100) fL MCH (25-34) pg MCHC (32-36) g/dL RDW Std Deviation (36.4-46.3) fL RDW Coeff of Rubén (11.5-14.5) % Plt Count (130-400) K/uL MPV (7.4-10.4) fL Immature Gran % (Auto) % Neut % (Auto) % Lymph % (Auto) % [place] % (Auto) % Eos % (Auto) % Baso % (Auto) % Neut # (Auto) (1.4-6.5) K/uL Lymph # (Auto) (1.2-3.4) K/uL [place] # (Auto) (0.11-0.59) K/uL Eos # (Auto) (0-0.5) K/uL Baso # (Auto) (0-0.2) K/uL Immature Gran # (Auto) (0.00-0.02) K/uL APTT 27.6 (21.0-31.0) Seconds PTT Ratio 1.0 Sodium (136-145) mmol/L Potassium (3.5-5.1) mmol/L Chloride (98-107) mmol/L Carbon Dioxide (21-32) mmol/L Anion Gap (3-11) BUN (7-18) mg/dl Creatinine (0.6-1.4) mg/dl Est Cr Clr Drug Dosing ml/min Est GFR ( Amer) ml/min Est GFR (Non-Af Amer) ml/min BUN/Creatinine Ratio (10-20) Glucose (70-99) mg/dl Osmolality (280-300) mOsm/kg Calcium (8.5-10.1) mg/dl Magnesium (1.8-2.4) mg/dl Total Bilirubin (0.2-1) mg/dl AST (15-37) U/L ALT (12-78) U/L Alkaline Phosphatase (45-117) U/L Total Protein (6.4-8.2) gm/dl Albumin (3.4-5.0) gm/dl Globulin (2.5-4.0) gm/dl Albumin/Globulin Ratio (0.9-2) Lipase (73-393) U/L TSH (0.300-4.500) uIu/ml Urine Color Urine Appearance (Clear) Urine pH (4.5-7.5) Ur Specific [place] (1.000-1.030) Urine Protein (Negative) Urine Glucose (UA) (Negative) Urine Ketones (Negative) Urine Blood (Negative) Urine Nitrite (Negative) Urine Bilirubin (Negative) Urine Urobilinogen (Negative) Ur Leukocyte Esterase (Negative) Urine WBC (Auto) (0-5) /hpf Urine RBC (Auto) (0-4) /hpf U Hyaline Cast (Auto) (0-5) /lpf U Epithel Cells (Auto) (0-5) /lpf Urine Bacteria (Auto) (Negative) Ur Renal Epithelial Cell Triple Phos Crystals (None Prsent) Urine Osmolality (500-800) mOsm/kg Ur Random Sodium mmol/L COVID-19 Eval Order SARS-CoV-2 (PCR) (Negative) Administered Medications Discontinued Medications Sodium Chloride (Nss) 500 mls @ 999 mls/hr IV .Q31M ONE Stop: 06/22/21 03:28 Last Infusion: 06/22/21 03:46 Dose: 0 mls/hr Documented by: [id number] Admin: 06/22/21 03:14 Dose: 999 mls/hr Documented by: [id number] Sodium Chloride (Nss) 500 mls @ 125 mls/hr IV .Q4H DANNY Stop: 07/22/21 02:59 Last Admin: 06/22/21 03:14 Dose: 125 mls/hr Documented by: [id number] Cefepime HCl (Maxipime) 2,000 mg in 20 mls @ 5 mls/min IV NOW STA; Protocol Stop: 06/22/21 03:41 Last Admin: 06/22/21 04:08 Dose: 5 mls/min Documented by: [id number] Ioversol (Optiray 320 100ml) 100 ml IV ONCE ONE Stop: 06/22/21 02:36 Last Admin: 06/22/21 02:35 Dose: 93 ml Documented by: [id number] Ondansetron HCl (Ondansetron Inj 2 Mg/Ml 2 Ml Vial) 4 mg IV NOW STA Stop: 06/22/21 01:16 Last Admin: 06/22/21 01:41 Dose: 4 mg Documented by: [id number] Discharge Plan Visit Data Chief Complaint: Abdominal Pain Stated Complaint: ABD PAIN ED Provider: Elena Kim Discharge Problem: SBO (small bowel obstruction), Acute hyponatremia Patient Disposition: Admitted As Inpatient Discharge Instructions Interventions: ED Discharge Assessment Last Done: 06/22/21 06:23
[2021-06-22 01:44] LABS: Triple Phosphate Crystal Urine Present (None Prsent)
[2021-06-22 01:45] LABS: Cast Urine Automated 0 /lpf (0-5)
[2021-06-22 01:57] LABS: Albumin Globulin Ratio 1.1 (0.9-2); Albumin Level 3.9 gm/dl (3.4-5.0); BUN Creatinine Ratio 17.2 (10-20); Bilirubin,Total 1.1 mg/dl (0.2-1); Calcium 9.2 mg/dl (8.5-10.1); Creatinine Clr Calc Pharmacy 65.1 ml/min; Est GFR (African American) 91.2 ml/min; Est GFR (Non-African American) 78.7 ml/min; Globulin 3.6 gm/dl (2.5-4.0); Total Protein 7.5 gm/dl (6.4-8.2)
[2021-06-22] MEDS ORDERED: OPTIRAY 320 100ml IV ONE (02:35)
[2021-06-22] MEDS ORDERED: SODIUM CHLORIDE 0.9% 500 ML IV ONE (02:58)
[2021-06-22] MEDS ORDERED: SODIUM CHLORIDE 0.9% 500 ML IV SCH (03:00)
[2021-06-22] MEDS ORDERED: CEFEPIME 2,000 MG/20 ML VIAL IV STA (03:38)
[2021-06-22 04:28] LABS: Partial Thromboplastin Time 27.6 Seconds (21.0-31.0)
[2021-06-22 04:33] LABS: Potassium 4.5 mmol/L (3.5-5.1)
--- NOTE | 2021-06-22 04:47 | History & Physical Report ---
Date of Service June 22, 2021 Assessment & Plan (1) SBO (small bowel obstruction): Plan: Likely secondary to adhesions secondary to multiple intra-abdominal operations Complicated UTI hx prostate cancer status post surgery/radiation periodic Eligard treatment hx bladder cancer with ureter spread status post HCG status post surgery Acute on possible chronic hyponatremia secondary to illness Hyponatremic on 2 recent outpatient blood draws in [place] as per patient Hypertension, slightly elevated secondary discomfort hyperlipidemia on statin Rx hx TIA Hyperglycemia rule out DM past tobacco abuse Medical telemetry Bowel rest NGT decompression if with progression Surgery consult Re: SBO (ER provider already in touch with Dr. Parks.) CS, Cefepime Careful correction of sodium Hyponatremia work-up Monitor BP, initiate lisinopril if with persistent BP elevation Check hemoglobin A1c DVT prophylaxis per Lovenox subcu Full code Patient's requesting updates from providers. Manda Mary Andujar, contact #[phone]. Text document was generated using [employer] voice recognition software. It may contain grammatical or spelling errors. Kindly contact undersigned for clarification of any documentation item in question. History of Present Illness Chief Complaint: Abdominal pain Primary Care Provider: Dr. Breen from [place], [place] History obtained from patient, family, and records. Patient is a resident of [place], [place] currently visiting family in town the last few weeks. Medical history significant for prostate cancer status post surgery/radiation periodic Eligard treatment, bladder cancer with ureter spread status post HCG status post surgery, HTN, hyperlipidemia, TIA, macular degeneration, past tobacco abuse. Last confinement [facility] 2016 for chest pain. Patient underwent bladder cancer surgery, urostomy creation by Dr. Martinez at [facility] in [place], [place] last April,. 2 days history of diffuse achy abdominal pain with nausea vomiting symptoms. Usual constipation as per patient. No fever, some chills. No chest pain, no S OB. No prior episodes as per patient although some abdominal discomfort noted at home the last few months related to vigorous exercise. Patient brought to the ER by . Medical History as above Surgical History : Radical prostatectomy, right nephrectomy, cystectomy, urostomy, hernia repair, cataract surgery Family History : Prostate cancer, heart disease, breast cancer, stroke Personal/Social history : Past tobacco abuse, alcohol intake denies abuse, retired from [employer] work Allergies Allergy/AdvReac Type Severity Reaction Status Date / Time No Known Allergies Allergy Mild Verified 06/22/21 00:45 Home Medications Medication Instructions Recorded Confirmed Type acyclovir 5 % topical ointment 1 applic TOPICAL UD 06/22/21 06/22/21 History clobetasol 0.05 % scalp solution 1 applic TOPICAL UD 06/22/21 06/22/21 History clopidogrel 75 mg tablet 75 mg PO DAILY 06/22/21 06/22/21 History fluticasone 250 mcg-salmeterol 50 1 ea INHALATION DAILY 06/22/21 06/22/21 History mcg/dose blistr powdr for inhalation (Advair Diskus) ketoconazole 2 % topical cream 1 applic TOPICAL UD 06/22/21 06/22/21 History lisinopril 10 mg tablet 10 mg PO DAILY 06/22/21 06/22/21 History multivitamin 1 tab PO DAILY 06/22/21 06/22/21 History Past Med/Surg History Social History Smoking Status: Never smoker Preferred Language: Uzbek Feels Safe at Home: Yes Review of Systems Review of Systems: As per HPI, all 10 systems reviewed, all other ROS negative Physical Exam Physical Exam: GENERAL: Comfortable, pleasant, looks younger for stated age, no respiratory distress SKIN: Normal color, warm HEENT: Bespectacled, Brent palpebral conjunctivae, no ptosis, dry buccal mucosa NECK : Supple, no tenderness CHEST : CTA, no tenderness HEART : RRR, no obvious murmurs ABDOMEN: Some distention, urostomy bag noted, central abdominal tenderness EXTREMITIES : No LE swelling/tenderness, no other conspicuous deformities noted NEUROLOGIC : Coherent, no facial asymmetry, no other gross focality Results & Data Results & Data ([facility]) Vital Signs (Past 12 Hours) Vital Signs Temp Pulse Pulse Resp BP BP Pulse Ox 06/22/21 03:00 74 18 139/81 94 06/22/21 02:00 73 19 133/89 06/22/21 01:30 71 20 142/89 H 95 06/22/21 01:16 73 96 06/22/21 01:00 77 21 166/83 H 96 06/22/21 00:56 85 18 166/89 H 96 06/22/21 00:34 36.2 C L 77 18 157/92 H 96 Laboratory Results Laboratory Results WBC 10.02 K/uL (4.8-10.8) 06/22/21 01:16 RBC 4.70 M/uL (4.7-6.1) 06/22/21 01:16 Hgb 15.1 g/dL (14.0-18.0) 06/22/21 01:16 Hct 43.1 % (42-52) 06/22/21 01:16 MCV 91.7 fL (80-100) 06/22/21 01:16 MCH 32.1 pg (25-34) 06/22/21 01:16 MCHC 35.0 g/dL (32-36) 06/22/21 01:16 RDW Std Deviation 45.8 fL (36.4-46.3) 06/22/21 01:16 RDW Coeff of Rubén 13.7 % (11.5-14.5) 06/22/21 01:16 Plt Count 312 K/uL (130-400) 06/22/21 01:16 MPV 9.2 fL (7.4-10.4) 06/22/21 01:16 Immature Gran % (Auto) 0.2 % 06/22/21 01:16 Neut % (Auto) 84.2 % 06/22/21 01:16 Lymph % (Auto) 10.7 % 06/22/21 01:16 Sierra % (Auto) 4.3 % 06/22/21 01:16 Eos % (Auto) 0.4 % 06/22/21 01:16 Baso % (Auto) 0.2 % 06/22/21 01:16 Neut # (Auto) 8.44 K/uL (1.4-6.5) H 06/22/21 01:16 Lymph # (Auto) 1.07 K/uL (1.2-3.4) L 06/22/21 01:16 Sierra # (Auto) 0.43 K/uL (0.11-0.59) 06/22/21 01:16 Eos # (Auto) 0.04 K/uL (0-0.5) 06/22/21 01:16 Baso # (Auto) 0.02 K/uL (0-0.2) 06/22/21 01:16 Immature Gran # (Auto) 0.02 K/uL (0.00-0.02) 06/22/21 01:16 APTT 27.6 Seconds (21.0-31.0) 06/22/21 04:09 PTT Ratio 1.0 06/22/21 04:09 Sodium 131 mmol/L (136-145) L 06/22/21 04:09 Potassium 4.5 mmol/L (3.5-5.1) 06/22/21 04:09 Chloride 96 mmol/L (98-107) L 06/22/21 01:16 Carbon Dioxide 28 mmol/L (21-32) 06/22/21 01:16 Anion Gap 3.0 (3-11) 06/22/21 01:16 BUN 15 mg/dl (7-18) 06/22/21 01:16 Creatinine 0.90 mg/dl (0.6-1.4) 06/22/21 01:16 Est Cr Clr Drug Dosing 65.1 ml/min 06/22/21 01:16 Est GFR ( Amer) 91.2 ml/min 06/22/21 01:16 Est GFR (Non-Af Amer) 78.7 ml/min 06/22/21 01:16 BUN/Creatinine Ratio 17.2 (10-20) 06/22/21 01:16 Glucose 136 mg/dl (70-99) H 06/22/21 01:16 Calcium 9.2 mg/dl (8.5-10.1) 06/22/21 01:16 Total Bilirubin 1.1 mg/dl (0.2-1) H 06/22/21 01:16 AST U/L (15-37) 06/22/21 01:16 ALT 20 U/L (12-78) 06/22/21 01:16 Alkaline Phosphatase 65 U/L (45-117) 06/22/21 01:16 Total Protein 7.5 gm/dl (6.4-8.2) 06/22/21 01:16 Albumin 3.9 gm/dl (3.4-5.0) 06/22/21 01:16 Globulin 3.6 gm/dl (2.5-4.0) 06/22/21 01:16 Albumin/Globulin Ratio 1.1 (0.9-2) 06/22/21 01:16 Lipase 138 U/L (73-393) 06/22/21 01:16 Urine Color Yellow 06/22/21 01:16 Urine Appearance Clear (Clear) 06/22/21 01:16 Urine pH 8.5 (4.5-7.5) H 06/22/21 01:16 Ur Specific [place] 1.011 (1.000-1.030) 06/22/21 01:16 Urine Protein 2+ (Negative) H 06/22/21 01:16 Urine Glucose (UA) Negative (Negative) 06/22/21 01:16 Urine Ketones Negative (Negative) 06/22/21 01:16 Urine Blood 1+ (Negative) H 06/22/21 01:16 Urine Nitrite Positive (Negative) A 06/22/21 01:16 Urine Bilirubin Negative (Negative) 06/22/21 01:16 Urine Urobilinogen Negative (Negative) 06/22/21 01:16 Ur Leukocyte Esterase Negative (Negative) 06/22/21 01:16 Urine WBC (Auto) 5-10 /hpf (0-5) H 06/22/21 01:16 Urine RBC (Auto) 5-10 /hpf (0-4) H 06/22/21 01:16 U Hyaline Cast (Auto) 0 /lpf (0-5) 06/22/21 01:16 U Epithel Cells (Auto) >30 /lpf (0-5) H 06/22/21 01:16 Urine Bacteria (Auto) 4+ (Negative) H 06/22/21 01:16 Ur Renal Epithelial Cell Not Reportable 06/22/21 01:16 Triple Phos Crystals Present (None Prsent) A 06/22/21 01:16 Ur Random Sodium 68 mmol/L 06/22/21 01:16 COVID-19 Eval Order Covid19 at [facility] 06/22/21 03:[address] abdomen pelvis initial read: Status post cystoprostatectomy. Status post right nephrectomy. Right lower quadrant ostomy. Right lower quadrant hernia located just mediallyto the ostomyand containing loops of small and large bowel with dilatation of small bowel loop within the hernia sac. Neck of the hernia iswide and there is no evidence of obstruction of bowel loops at the level of the hernia. There is diffuse dilatation of upstreamsmall bowel loops extending fromthe right lower quadrant ostomycompatible with small bowel obstruction. Dilated small bowel loops measure up to 3.5 cmin diameter. No evidence of bowel wall thickening, pneumatosis intestinalis. No pneumoperitoneum. Mild free pelvic fluid. Chest x-ray as per my interpretation atelectasis
[2021-06-22 04:48] LABS: Magnesium 2.2 mg/dl (1.8-2.4); Thyroid Stimulating Hormone 1.24 uIu/ml (0.300-4.500)
[2021-06-22] MEDS ORDERED: MoRPHine SULFATE 2 MG/ML CARP IV PRN (06:22)
[2021-06-22] MEDS ORDERED: CEFEPIME CONSULT ACTIVE PRN (06:22)
[2021-06-22] MEDS ORDERED: ACETAMINOPHEN 325 MG TAB PO PRN (06:22)
[2021-06-22] MEDS ORDERED: PROMETHAZINE HCL 12.5 MG in SODIUM CHLORIDE 0.9% 50 ML IV PRN (06:22)
[2021-06-22] MEDS ORDERED: oxyCODONE HCL IR 5 MG TAB (IMMEDIATE RELEASE) PO PRN (06:22)
[2021-06-22] MEDS: SODIUM CHLORIDE 0.9% 1000ML 1,000 ML IV SCH (06:41)
[2021-06-22 07:23] LABS: Estimated Average Glucose 117 mg/dl; Hemoglobin A1C 5.7 % (4.5-5.6)
--- NOTE | 2021-06-22 07:54 | XRay Report ---
SINGLE VIEW CHEST CLINICAL HISTORY: Hyponatremia. FINDINGS: An AP, portable, upright chest radiograph is compared to study dated 06/30/2017. The cardiom ediastinal silhouette is unremarkable noting atherosclerotic calcification with uncoiling of the thor acic aorta. Emphysema and chronic interstitial thickening similar to previous. There is bibasilar sca rring/atelectasis. No airspace consolidation or large pleural effusion is identified. No pneumothorax is seen. The skeletal structures are osteopenic. The bony thorax is grossly intact. IMPRESSION: Emphysematous change with no acute cardiopulmonary abnormality. ACT 112: Negative or not required by law. Electronically signed by: Mac Vasques M.D. 06/22/2021 7:53 AM
--- NOTE | 2021-06-22 08:22 | CT Scan Report ---
CT SCAN OF THE ABDOMEN AND PELVIS WITH IV CONTRAST CLINICAL HISTORY: Hyponatremia. COMPARISON STUDY: No priors. TECHNIQUE: Following the IV administration of 93 cc of Optiray 320, CT scan of the abdomen and pelvi s is performed from the lung bases to the proximal femora. Images are reviewed in the axial, sagittal , and coronal planes. IV contrast was administered without complication. A dose lowering technique wa s utilized adhering to the principles of ALARA. CT DOSE: 541.99 mGy.cm FINDINGS: Lung bases: The heart is normal in size and without pericardial effusion. The coronary arteries are d ensely calcified. Advanced emphysema is change is noted at the lung bases with mild elevation of the right hemidiaphragm and bibasilar scarring/atelectasis. There is no airspace consolidation typical fo r pneumonia or pleural effusion. A small hiatal hernia is noted. Liver: The contrast-enhanced liver is normal in size, contour, and attenuation. There is no intrahepa tic biliary ductal dilatation. The hepatic veins and portal veins are patent. Numerous hepatic cysts measure up to 3 cm. Additional subcentimeter hepatic hypodensities also likely represent cysts but ar e too small for definitive characterization. Gallbladder: Unremarkable. Spleen: Normal in size and attenuation. Pancreas: Unremarkable. Adrenal glands: Unremarkable. Kidneys: The right kidney is surgically absent. The left kidney is normal in size and enhances homoge neously. There is no hydronephrosis. A subcentimeter cortical hypodensity in the interpolar left kidn ey likely represents a cyst but is too small for definitive characterization. No enhancing cortical l esion is seen. A large extrarenal pelvis is noted. Abdominal vasculature: There is advanced atherosclerotic calcification and mild ectasia of the abdomi nal aorta. Bowel: The stomach is distended and fluid-filled. The proximal small bowel loops are distended and fl uid-filled, measuring up to 3.5 cm in diameter. These are dilated to the level of an anastomosis in t he upper pelvis seen on image #336. The distal small bowel loops are decompressed and the appearance is consistent with a small bowel obstruction. Mildly thick-walled and hyperemic loops of small bowel are noted in the right lateral abdomen on image #251. Additional thick walled loops of small bowel ar e seen in the pelvis and measures 38 with associated interloop fluid. A large ventral hernia contains a portion of the transverse colon and a small bowel anastomosis. There is focal dilatation at the an astomotic site which measures up to 4.3 cm. This is likely related to focal denervation and does not appear to be the site of bowel obstruction. The distal ileum below the anastomosis is decompressed. I brewer conduit/urostomy is seen in the right lower quadrant. There is mild to moderate colonic fecal re tention. There is colonic diverticulosis without CT evidence of acute diverticulitis. The cecum is lo cated in the right upper quadrant. The appendix is well-visualized and normal. There is a parastomal hernia at the urostomy site, and although there is an apparent focal transition point at the entranc e to the hernia this is unlikely to cause upstream small bowel obstruction. Peritoneum: A midline surgical scar is noted. No intraperitoneal free air is identified. There is tra ce ascites in the right upper quadrant and pelvis. Lymphadenopathy: None. Pelvic viscera: The bladder and prostate are surgically absent with surgical clips seen throughout th e pelvis. Skeletal structures: The skeletal structures are osteopenic. There is moderate lumbosacral spondylosi s. Arthritic change is seen in the hips. No lytic or blastic lesions are identified. IMPRESSION: 1. There is postoperative change from right nephrectomy, cystectomy, prostatectomy, and right lower q uadrant ileal conduit/urostomy. 2. There are thick-walled and hyperemic loops of small bowel in the right lateral abdomen and the pel vis. There is mild throughout infiltration and interloop fluid. 3. There is evidence of small bowel obstruction, with distention of the proximal small bowel loops an d decompression of the distal ileum. A discrete transition point is not visualized and this may be se condary to inflammatory change. Clinical correlation will be essential. 4. A large ventral hernia contains a segment of the transverse colon and a small bowel anastomosis. A lthough the anastomosis appears dilated this is likely due to focal denervation. This is not appear t o represent the site of obstruction. 5. There is a parastomal hernia at the urostomy site. Although there is apparent narrowing of the bow el at the entrance of the hernia this is unlikely to cause upstream small bowel obstruction. 6. There is trace abdominopelvic ascites. 7. Advanced emphysema. 8. Additional findings as above. ACT 112: Negative or not required by law. Electronically signed by: Mac Vasques M.D. 06/22/2021 8:21 AM
[2021-06-22] MEDS: CLOPIDOGREL BISULFATE 75 MG TAB PO SCH (09:01)
[2021-06-22] MEDS: DOCUSATE SODIUM/SENNA 50/8.6MG TAB PO SCH (09:01)
[2021-06-22] MEDS: ENOXAPARIN INJ 40 MG/0.4 ML SYR SQ SCH (09:02)
[2021-06-22] MEDS: lisinopril 10 MG TAB PO SCH (09:02)
[2021-06-22] MEDS: MULTIVITAMIN TAB PO SCH (09:02)
[2021-06-22] MEDS: FLUTICASONE/VILANTEROL 200/25MCG 14 PUFFS/INHALER INH SCH (09:02)
--- NOTE | 2021-06-22 09:34 | Surgery Consultation ---
Date of Consultation June 22, 2021 Assessment & Plan (1) SBO (small bowel obstruction): -CT results and images reviewed -Has large mouthed incisional hernia as well has parastomal hernia without evidence of incarceration or obstruction -He likely has an adhesive SBO that is resolving as he had a BM this morning and now without pain -Will trial clear liquids today and monitor progress History of Present Illness Reason for Consultation: SBO Requesting Physician: ED Physician Attending Physician: Celine Bravo MD History of Present Illness This is an 81 yo male who presented to the ED with about 24 hours of increased abdominal cramping/pain. He describes the pain as a pulling of the muscles, no radiation, no worsening or relieving factors. He had some nausea with it but emesis. No fevers or chills. He has a history of right nephrectomy, cystoprostatectomy with ileal conduit in 2019. He also had previous radiation to his prostate prior to that surgery. This was all completed in [place] where he lives except for 2 months in the summer he is here in [place]. CT A/P in ER revealed parastomal hernia as well as a large incisional midline hernia, although these are not causing the SBO. At the time of my seeing him, he had a large formed BM and his abdominal pain has resolved. He takes Plavix for a history of TIA about 20 years ago. Allergies Allergy/AdvReac Type Severity Reaction Status Date / Time No Known Allergies Allergy Mild Verified 06/22/21 00:45 Home Medications Medication Instructions Recorded Confirmed Type acyclovir 5 % topical ointment 1 applic TOPICAL UD 06/22/21 06/22/21 History clobetasol 0.05 % scalp solution 1 applic TOPICAL UD 06/22/21 06/22/21 History clopidogrel 75 mg tablet 75 mg PO DAILY 06/22/21 06/22/21 History fluticasone 250 mcg-salmeterol 50 1 ea INHALATION DAILY 06/22/21 06/22/21 History mcg/dose blistr powdr for inhalation (Advair Diskus) ketoconazole 2 % topical cream 1 applic TOPICAL UD 06/22/21 06/22/21 History lisinopril 10 mg tablet 10 mg PO DAILY 06/22/21 06/22/21 History multivitamin 1 tab PO DAILY 06/22/21 06/22/21 History Patient History Social History Smoking Status: Never smoker Preferred Language: Peruvian Feels Safe at Home: Yes Review of Systems Constitutional: no fever and no chills Eyes: no blind spots and no worsening vision Ear, Nose, Mouth, Throat: no ear pain and no hearing loss Respiratory: no cough and no dyspnea Cardiovascular: no chest pain and no dyspnea on exertion Gastrointestinal: + abdominal pain, + nausea and + change in stools; no vomiting, no blood in stools and no melena Genitourinary: + as per Subjective / HPI and + hematuria Musculoskeletal: no back pain and no neck pain Integumentary: no acne and no rash Neurologic: no headache(s) Psychiatric: no behavioral changes and no depression Hematologic / Lymphatic: no easy bleeding and no easy bruising Physical Exam Constitutional: WD/WN, vitals as above Eyes: PERRL, conjunctivae normal, anicteric sclerae ENMT: external ear and nose normal, oropharynx normal Neck: trachea midline, no thyromegaly Respiratory: normal respiratory effort, lungs clear to auscultation Cardiovascular: RRR, no murmur, no edema Gastrointestinal (Abdomen): Inspection/Auscultation: + visible herniation; abdomen not distended Percussion/Palpation: abdomen soft and + hernia (large parastomal and midline incisional, reducible); abdomen nontender, no guarding and abdomen not rigid Musculoskeletal: no cyanosis or clubbing, extremities motor strength 5/5 Skin: no rashes, warm and dry Neurologic: PERRL, EOMI, accommodation nl, no face palsy, no dysarthria Psychiatric: A+Ox3, euthymic affect Genitourinary: Ileal conduit in RLQ with clear urine present Results & Data ([facility]) Vital Signs (Past 12 Hours) Vital Signs Temp Pulse Pulse Resp BP BP Pulse Ox 06/22/21 08:30 73 19 123/73 06/22/21 08:00 72 17 131/72 06/22/21 07:30 71 20 130/72 06/22/21 07:00 74 17 139/75 06/22/21 06:30 72 16 132/77 94 06/22/21 06:28 06/22/21 06:00 76 18 136/80 93 06/22/21 05:30 74 17 133/78 93 06/22/21 05:00 74 16 143/82 H 92 06/22/21 04:30 77 18 145/88 H 94 06/22/21 04:00 76 18 151/88 H 95 06/22/21 03:30 73 16 130/80 93 06/22/21 03:00 74 18 139/81 94 06/22/21 02:00 73 19 133/89 06/22/21 01:30 71 20 142/89 H 95 06/22/21 01:16 73 96 06/22/21 01:00 77 21 166/83 H 96 06/22/21 00:56 85 18 166/89 H 96 06/22/21 00:34 36.2 C L 77 18 157/92 H 96 Pulse Ox 06/22/21 08:30 06/22/21 08:00 06/22/21 07:30 06/22/21 07:00 06/22/21 06:30 06/22/21 06:28 94 06/22/21 06:00 06/22/21 05:30 06/22/21 05:00 06/22/21 04:30 06/22/21 04:00 06/22/21 03:30 06/22/21 03:00 06/22/21 02:00 06/22/21 01:30 06/22/21 01:16 06/22/21 01:00 06/22/21 00:56 06/22/21 00:[address] A/P 06/22/21 IMPRESSION: 1. There is postoperative change from right nephrectomy, cystectomy, prostatectomy, and right lower quadrant ileal conduit/urostomy. 2. There are thick-walled and hyperemic loops of small bowel in the right lateral abdomen and the pelvis. There is mild throughout infiltration and interloop fluid. 3. There is evidence of small bowel obstruction, with distention of the proximal small bowel loops and decompression of the distal ileum. A discrete transition point is not visualized and this may be secondary to inflammatory change. Clinical correlation will be essential. 4. A large ventral hernia contains a segment of the transverse colon and a small bowel anastomosis. Although the anastomosis appears dilated this is likely due to focal denervation. This is not appear to represent the site of obstruction. 5. There is a parastomal hernia at the urostomy site. Although there is apparent narrowing of the bowel at the entrance of the hernia this is unlikely to cause upstream small bowel obstruction. 6. There is trace abdominopelvic ascites. 7. Advanced emphysema. PG Care Time/CCT Total # of Minutes Spent Total Time Spent with Patient: Total time spent is greater than 50% in mess cook rdination of care (as documented) at patient's floor/unit and/or counseling patient: Coding Level of Care Code 58698 Initial Inpt Care Lvl 3 Diagnoses SBO (small bowel obstruction) K56.609
[2021-06-22] MEDS: ACETAMINOPHEN 325 MG TAB PO PRN (15:51)
[2021-06-22] MEDS: CEFEPIME 2,000 MG/20 ML VIAL IV SCH (17:44)
--- NOTE | 2021-06-22 22:19 | Communication Note ---
Date of Service: June 22, 2021 Patient was seen and examined for follow-up of small bowel obstruction Lying in bed with no acute distress Patient said that he feels much better he said that he is not having any abdominal discomfort Starting on clear liquid diet Denies any chest pain, palpitation, dizziness, shortness of breath. General- No acute distress Head- atraumatic Eyes- PERRL, EOMI, ENT- oropharynx clear Neck- supple, no JVD Lungs- clear to auscultation Heart- regular rhythm; no murmur Abdomen- normal bowel sounds, +hernia, nontender non distended Extremities- no calf tenderness Neuro- alert, oriented x 3; PERRL, EOMI; no facial palsy; no dysarthria Skin- warm & dry A/P Small bowel obstruction Mostly secondary to adhesions secondary to multiple intra-abdominal procedure CT/abd pelvis showed evidence of small bowel obstruction, with distention of the proximal small bowel loops and decompression of the distal ileum. Surgery on board Patient had a large bowel movement this morning Started on clear liquid diet since symptoms improved Continue gentle fluid hydration Continue monitor closely Abnormal UA Possible UTI UA positive for nitrite, bacteria Continue IV cefepime Urine culture pending Hyponatremia Possible related to poor oral intake Sodium on admission 127 Currently on gentle IV fluid Sodium 132 today Continue monitor BMP DVT prophylaxis on Lovenox subcu CODE STATUS full code
[2021-06-23] MEDS: CEFEPIME 2,000 MG/20 ML VIAL IV SCH ×2 (04:26→15:35)
[2021-06-23 06:12] LABS: Basophils # (auto) 0.01 K/uL (0-0.2); Basophils % (auto) 0.2 %; Eosinophils # (auto) 0.08 K/uL (0-0.5); Eosinophils % (auto) 1.8 %; Hematocrit (blood only) 36.9 % (42-52); Hemoglobin 12.5 g/dL (14.0-18.0); Lymphocytes # (auto) 1.07 K/uL (1.2-3.4); Lymphocytes % (auto) 23.7 %; Mean Corpuscular Hemoglobin 31.4 pg (25-34); Mean Corpuscular Hgb Conc 33.9 g/dL (32-36); Mean Corpuscular Volume 92.7 fL (80-100); Monocytes % (auto) 8.8 %; Neutrophils # (auto) 2.96 K/uL (1.4-6.5); Neutrophils % (auto) 65.5 %; Platelet Count 270 K/uL (130-400); RDW Coefficient of Variation 13.9 % (11.5-14.5); RDW Standard Deviation 47.3 fL (36.4-46.3); Red Blood Count 3.98 M/uL (4.7-6.1); White Blood Count 4.52 K/uL (4.8-10.8)
[2021-06-23] MEDS: SODIUM CHLORIDE 0.9% 1000ML 1,000 ML IV SCH (06:14)
[2021-06-23 06:29] LABS: BUN Creatinine Ratio 16.1 (10-20); Calcium 8.2 mg/dl (8.5-10.1); Creatinine Clr Calc Pharmacy 80.3 ml/min; Est GFR (African American) 99.4 ml/min; Est GFR (Non-African American) 85.8 ml/min; Potassium 4.4 mmol/L (3.5-5.1)
[2021-06-23] MEDS: DOCUSATE SODIUM/SENNA 50/8.6MG TAB PO SCH (07:57)
[2021-06-23] MEDS: ENOXAPARIN INJ 40 MG/0.4 ML SYR SQ SCH (07:57)
[2021-06-23] MEDS: FLUTICASONE/VILANTEROL 200/25MCG 14 PUFFS/INHALER INH SCH (07:57)
[2021-06-23] MEDS: lisinopril 10 MG TAB PO SCH (07:57)
[2021-06-23] MEDS: CLOPIDOGREL BISULFATE 75 MG TAB PO SCH (07:57)
[2021-06-23] MEDS: MULTIVITAMIN TAB PO SCH (07:57)
[2021-06-23] MEDS: ACETAMINOPHEN 325 MG TAB PO PRN ×2 (08:03→15:35)
--- NOTE | 2021-06-23 09:03 | Surgery Progress Note ---
Date of Service June 23, 2021 Assessment & Plan (1) SBO (small bowel obstruction): Plan: Patient feeling much improved in his symptoms since admission + BM yesterday and flatus Tolerating clears, no nausea/vomiting, abdominal pain Okay to advance diet as tolerates from fulls to low fiber, if does well can consider discharge today Pt requesting hand out on low fiber diet Admission and Anticipated Discharge Date Admission Date: June 22, 2021 Supervising Physician Co-Signing Physician Notes pnt S&E, agree with above. resolving sbo, exam benign, advance diet to low fiber as tolerated and possible d/c today or tomorrow Subjective Patient feeling better. He denies any abdominal pain, nausea/vomiting. He is passing flatus, had a BM yesterday. Feels some more rumbling this AM. He is tolerating clear liquids and feels hungry. Physical Exam Physical Exam: awake/alert, sitting up in chair having liquids Respiratory: normal respiratory effort Gastrointestinal (Abdomen): Percussion/Palpation: abdomen soft; abdomen nontender Results & Data ([facility]) Vital Signs (Past 12 Hours) Vital Signs Temp Pulse Pulse Resp BP Pulse Ox 06/23/21 07:55 36.6 C 66 20 156/80 H 95 06/23/21 07:00 69 06/23/21 04:48 36.6 C 68 20 134/76 92 06/22/21 23:51 70 06/22/21 23:38 36.5 C 78 18 117/73 92 PG Care Time/CCT Total # of Minutes Spent Total Time Spent with Patient: Total time spent is greater than 50% in coordination of care (as documented) at patient's floor/unit and/or counseling patient: Coding Level of Care Code 80934 Subseq Hosp Care Lvl 1 Diagnoses SBO (small bowel obstruction) K56.609
--- NOTE | 2021-06-23 17:46 | Discharge Summary ---
Date of Service June 23, 2021 Admission HPI Per Admitting Provider History obtained from patient, family, and records. Patient is a resident of [place], [place] currently visiting family in town the last few weeks. Medical history significant for prostate cancer status post surgery/radiation periodic Eligard treatment, bladder cancer with ureter spread status post HCG status post surgery, HTN, hyperlipidemia, TIA, macular degeneration, past tobacco abuse. Last confinement [facility] 2016 for chest pain. Patient underwent bladder cancer surgery, urostomy creation by Dr. Martinez at [facility] in [place], [place] last April,. 2 days history of diffuse achy abdominal pain with nausea vomiting symptoms. Usual constipation as per patient. No fever, some chills. No chest pain, no S OB. No prior episodes as per patient although some abdominal discomfort noted at home the last few months related to vigorous exercise. Patient brought to the ER by . 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 Discharge Data Allergies Allergy/AdvReac Type Severity Reaction Status Date / Time No Known Allergies Allergy Mild Verified 06/22/21 00:45 Consultations 06/22/21 03:35 ED Decision to Admit Stat 06/22/21 06:22 Consult General Surgery Routine Ordered Studies 06/22/21 01:24 CT abd pelvis IV con only Urgent Hospital Course (1) SBO (small bowel obstruction): Small bowel obstruction Mostly secondary to adhesions secondary to multiple intra-abdominal procedure CT/abd pelvis showed evidence of small bowel obstruction, with distention of the proximal small bowel loops and decompression of the distal ileum. Surgery on board Patient had a large bowel movement this morning Started on clear liquid diet since symptoms improved Continue gentle fluid hydration Continue monitor closely Abnormal UA Possible UTI UA positive for nitrite, bacteria Continue IV cefepime Urine culture pending Hyponatremia DVT prophylaxis per Lovenox subcu Full code Patient's requesting updates from providers. Ms. Mary Andujar, contact #[phone]. By CMS guidelines, a determination that the admission or continued stay is not medically necessary has been made by a member of the UR committee and a physician for this hospital stay, therefore a Code 44 will be completed and the Inpatient admission will be changed to outpatient. Discharge Plan Discharge Items Patient Disposition: Home - Self-Care Reason For Visit: HYPONATREMIA, SBO Discharge Diagnosis: Small bowel obstruction Hyponatremia Activity: Resume your previous activity Non-emergency contact: Primary Care Provider Call non-emergency contact if: you have any medication questions Follow-up/Referrals: PCP,NO [Primary Care Provider] - Diet: Low Fiber Addtl Attending Provider Instructions: Follow up with your primary care provider ([facility] office will call you to schedule for the appointment for the appointment ) Seek medical attention Check BMP in 1 week to monitor your electrolytes Continue Low fiber diet Fall precaution Pending Studies at Discharge: No Stand-Alone Forms: My [employer], Smoking Cessation Medications and DC Order Prescriptions: Continued multivitamin Tablet 1 tab PO DAILY RF: 0 clopidogrel 75 mg tablet 75 mg PO DAILY RF: 0 lisinopril 10 mg tablet 10 mg PO DAILY RF: 0 clobetasol 0.05 % solution 1 applic TOPICAL UD RF: 0 fluticasone propion-salmeterol [Advair Diskus] 250-50 mcg/dose blister with device 1 ea INHALATION DAILY RF: 0 acyclovir 5 % ointment 1 applic TOPICAL UD RF: 0 ketoconazole 2 % cream 1 applic TOPICAL UD RF: 0 Krames/Other Patient Handouts: Small Bowel Obstruction, Low-Fiber Diet Admission Data Admit Date/Time: 06/22/21 05:22 Attending Provider: Celine Bravo Admit Provider: Miguel Vazquez Primary Care Provider: PCP,NO Other Providers: Miguel Vazquez ; Kenneth Parks
[2021-06-24] MEDS ORDERED: CEFEPIME 2,000 MG in SYRINGE 0 ML IV SCH (04:00)
--- NOTE | 2021-06-25 17:11 | Communication Note ---
Date of Service: June 25, 2021 By CMS guidelines, a determination that the admission or continued stay is not medically necessary has been made by a member of the Utilization Review com hood and a physician for this hospital stay. Therefore, a Code 44 will be completed and the inpatient admission will be changed to outpatient. DO KYRA Zuniga Physician in flight crew member
== END 2021-06-23 18:40 | disposition home or self-care (01) ==
LOC: ED 00:31 → EDINP 05:22 → INTOOBSV 05:22 → EDINP 06:23 → 2W 11:31 → 4W 06-23 08:49 → 2W 06-23 08:49